=== PATIENT | female | born 1940 | race Caucasian/White ===

== ENCOUNTER 2025-08-01 21:37 | Inpatient (IN) | payer MEDICARE, SELFPAY ==
--- NOTE | 2025-08-01 21:44 | PC.NURSE ---
Patient arrived to floor via stretcher with EMS from [facility] at 21:43.
[2025-08-01 21:55] VITALS: BMI 27.8
[2025-08-01 22:00] VITALS: BMI 25.8
[2025-08-01 22:31] VITALS: BP 187/86; PULSE 94; RESP 16; TEMP 36.8; O2SAT 98
[2025-08-01] MEDS: HYDROCODONE/APAP 5/325 MG TABLET 1 TAB PO (22:51)
--- NOTE | 2025-08-01 23:24 | P.HP_ITS ---
<Statement entered by Orlando Villanueva MD - 08/02/25 14:15> Agree with the plan of care as outlined by the STE[employer]EDER. History of Present Illness *Admission Date: 08/01/25 *Reason for visit:: Atrial thrombus *History of present illness: This is an 84-year-old female who has a past medical history significant for restless leg syndrome, CVA, renal cell cancer, dementia, iron deficiency/chronic kidney disease anemia, stage IV chronic kidney disease, anxiety, and depression who presents from outside facility due to right atrial thrombus. Due to patient's symptoms, she presented to their facility for evaluation. While at prior facility, 2D echo revealed an extensive thrombus in the right atrium, patient's chest x-ray was consistent with pulmonary edema, and her BNP was greater than 5000. As a result, patient's case was discussed with on-call public health service officer who recommended transfer to [facility] for thrombectomy. As a result, patient has been admitted for further management. During my evaluation of the patient, patient was alert and pleasantly confused. Family member reports that patient has had a 2-week history of shortness of air with minimal exertion. They endorse that patient has been having some shortness of air while laying flat. Patient does have a history of renal cell carcinoma but family does not want any aggressive treatment. Patient is currently denying any chest pain, lightheadedness, dizziness, fever, chills, rigors, nausea, vomiting, diarrhea. Additional pertinent labs obtained at prior facility revealed a BNP of greater than 5000, alkaline phosphate 150, hemoglobin 8.2, hematocrit of 27, troponin of 58, neutrophils 80%, blood glucose 146, BUN of 37, creatinine of 2.21, and GFR 21. [facility] Disclaimer: The information contained in this section may have been updated after the patient was seen, as this information can be updated by other users. Social History Smoking Status: Never smoker alcohol intake: never current occupational status: retired Travel in the last 8 weeks?: None Other Medical History Have you received the Flu Vaccine for this season: Yes Have you received the Pneumonia Vaccine: Yes Review of Systems Review of Systems Review of systems:: pertinent systems reviewed and negative unless documented below Constitutional Constitutional: Reports system reviewed and no additional complaints, except as documented Eyes Eyes: Reports system reviewed and no additional complaints, except as documented ENT Ears, Nose, Mouth, and Throat: Reports system reviewed and no additional complaints, except as documented *Cardiovascular Cardiovascular: Reports dyspnea and Reports dyspnea on exertion *Respiratory Respiratory: Reports dyspnea and Reports dyspnea on exertion *Gastrointestinal Gastrointestinal: Reports system reviewed and no additional complaints, except as documented *Genitourinary Genitourinary: Reports system reviewed and no additional complaints, except as documented *Musculoskeletal Musculoskeletal: Reports system reviewed and no additional complaints, except as documented Integumentary/Breasts Skin/Breast: Reports system reviewed and no additional complaints, except as documented *Neurologic Neurologic: Reports system reviewed and no additional complaints, except as documented Psychiatric Psychiatric: Reports system reviewed and no additional complaints, except as documented Endocrine Endocrine: Reports system reviewed and no additional complaints, except as documented Hematologic/Lymphatic Hematologic/Lymphatic: Reports system reviewed and no additional complaints, except as documented Allergic/Immunologic Allergic/Immunologic: Reports system reviewed and no additional complaints, except as documented Meds Home Medications and Allergies Home Medications ?Medication ?Instructions ?Recorded ?Confirmed ?Type alprazolam 0.5 mg tablet 0.5 mg PO TID PRN Anxity 04/1808/01/25 History aspirin 81 mg capsule 81 mg PO DAILY 08/01/2504/18 History donepezil 5 mg tablet 5 mg PO DAILY 08/01/2508/01 History ferrous gluconate 324 mg (38 mg 324 mg PO DAILY History iron) tablet gabapentin 100 mg capsule 100 mg PO HS 08/01/25 History mecobalamin (vitamin B12) 1,000 1,000 mcg PO DAILY 04/1808/01/25 History mcg chewable tablet (B12 Active) New Prescriptions to Start Prescriptions: Allergies Allergy/AdvReac Type Severity Reaction Status Date / Time No Known Allergies Allergy Verified 08/01/25 23:07 Exam Data for Last 24 hours Vital signs and Labs for Last 24 Hours: Temp Pulse Resp BP Pulse Ox O2 Del Method O2 Flow Rate 98.3 F 94 H 16 187/86 H 98 Nasal Cannula 2 08/01/25 22:31 08/01/25 22:31 08/01/25 22:31 08/01/25 22:31 08/01/25 22:31 08/01/25 23:00 08/01/25 23:00 I & O for Last 24 hours: Intake & Output 07/29/25 07/30/25 07/31/25 08/01/25 23:59 23:59 23:59 23:59 Weight 68.577 kg Constitutional Constitutional: no acute distress and cooperative *Routine HEENT Exam Head: Present normocephalic and atraumatic Eye: Present EOMI and PERRL ENT: Present mucous membranes moist *Routine Neck Exam Neck: Present supple, full ROM and trachea midline *Routine Respiratory Exam Respiratory: Present crackles, normal respiratory effort, able to speak in complete sentences and symmetric chest movement *Routine Cardiovascular Exam Cardiovascular: Present RRR, Normal S1 and Normal S2 *Routine Abdominal Exam Abdominal: Present soft and normoactive bowel sounds *Routine Rectal Exam Rectal:: deferred *Routine Genitalia Exam Genitalia:: deferred *Routine Extremities Exam Extremities: Present edema, full ROM, pulses intact and normal capillary refill Routine Back/Spine/Pelvis Exam Back/Spine: Present full ROM *Routine Skin Exam Skin: Present intact, dry and warm *Routine Neurological Exam Neurological: Present alert, oriented X3, CN II-XII intact and moving all extremities Routine Psychiatric Exam Psychiatric: Present normal affect, normal thought process and anxious H&P: Result Impressions 84-year-old female presents with right atrial thrombosis likely due to hypercoagulability from known renal carcinoma Assessment and Plan *Assessment and plan (1) Atrial thrombus: Status: Acute Category: Medical Code(s): I51.3 - Intracardiac thrombosis, not elsewhere classified (2) Pulmonary edema: Status: Acute Qualifiers: Chronicity: acute Qualified Code(s): J81.0 - Acute pulmonary edema Category: Medical Code(s): J81.1 - Chronic pulmonary edema (3) Elevated brain natriuretic peptide (BNP) level: Status: Acute Category: Medical Code(s): R79.89 - Other specified abnormal findings of blood chemistry (4) Acute hypoxic respiratory failure: Status: Acute Category: Medical Code(s): J96.01 - Acute respiratory failure with hypoxia (5) Anemia: Status: Acute Qualifiers: Anemia type: unspecified type Qualified Code(s): D64.9 - Anemia, unspecified Category: Medical Code(s): D64.9 - Anemia, unspecified (6) Chronic kidney disease: Status: Acute Qualifiers: Chronic kidney disease stage: unspecified stage Qualified Code(s): N18.9 - Chronic kidney disease, unspecified Category: Medical Code(s): N18.9 - Chronic kidney disease, unspecified (7) Elevated troponin: Status: Acute Category: Medical Code(s): R79.89 - Other specified abnormal findings of blood chemistry (8) Renal cancer: Status: Acute Qualifiers: Laterality: unspecified laterality Qualified Code(s): C64.9 - Malignant neoplasm of unspecified kidney, except renal pelvis Category: Medical Code(s): C64.9 - Malignant neoplasm of unspecified kidney, except renal pelvis Plan Assessment: Atrial thrombus Elevated troponin Acute hypoxic respiratory failure: Patient has new demand for supplemental oxygen at 2 L Elevated BNP Pulmonary edema - I had an extensive discussion with on-call cardiology concerning this patient. I will heparinize patient one 1 mg/kg of body weight of Lovenox twice daily- cardiology wants a minimum of 2 doses administered prior to ENT intervention - Will obtain 2D echo results from prior facility - Continue to trend patient's troponin - Provide supplemental oxygen to maintain oxygen saturation greater than 94% - 40 mg Lasix IV daily - Bilateral lower extremity venous Doppler Chronic kidney disease - Baseline creatinine is unknown Renal cell carcinoma - Patient does not want any aggressive workup or treatment Anemia - Multifactorial in the setting of iron deficiency and chronic kidney disease Plan: Admit patient to the MedSurg unit on telemetry Activity as tolerated Electrolyte replacement Saline lock Vital signs every 4 hours Cardiac diet now and then n.p.o. after midnight CBC/BMP daily Lipid panel, magnesium 5 mg [place] p.o. every 4 hours PMR pain 4 mg Zofran IV push to 8 hours for nausea Full code I have discussed this case with attending physician Dr. Villanueva and I look forward to more input
[2025-08-01] MEDS: OLANZapine 5 MG ODT TABLET SL (23:29)
[2025-08-02] VITALS (12 sets, daily range): BP systolic 115–175; BP diastolic 44–94; PULSE 75–106; RESP 12–18; TEMP 36.1–37.2; O2SAT 86–99; BMI 25.6
[2025-08-02] MEDS: HYDRALAZINE HCL 25MG TABLET 50 MG PO (00:25)
[2025-08-02] MEDS: GABAPENTIN 100MG CAPSULE 100 MG PO ×2 (00:25→20:07)
[2025-08-02 00:46] LABS: Troponin I 0.08 ng/ml (0.00-0.034)
--- NOTE | 2025-08-02 01:20 | ECG_ITS ---
APPROVED REPORT Exam: Resting ECG HR:95 bpm ECG Measurements Heart Rate 95 AXES AK 164 P 67 QRSd 78 QRS 31 QT 385 T 140 QTc 438 Conclusion SINUS RHYTHM LEFT VENTRICULAR HYPERTROPHY AND ST-T CHANGE [VOLTAGE CRITERIA PLUS ST/T ABNORMALITY] ABNORMAL ECG UNCONFIRMED REPORT Electronically signed by : Coery Cool MD 08/03/2025 08:12:51
[2025-08-02 07:32] LABS: Hematocrit 25.2 % (37.0-47.0); Hemoglobin 7.6 g/dL (12.2-16.2); Immature Granulocytes % 0.4 %; Mean Corpuscular HGB Conc 30.2 g/dL (31.8-35.4); Mean Corpuscular Hemoglobin 25.7 pg (27.0-31.2); Mean Corpuscular Volume 85.1 fl (81-99); Nucleated Red Blood Cells % 0 %; Platelet Count 383 K/mm3 (142-424); Red Blood Count 2.96 M/mm3 (4.20-5.40); Red Cell Distribution Width-SD 53.0 fL; White Blood Count 7.5 K/mm3 (4.8-10.8)
[2025-08-02 07:41] LABS: Alanine Aminotransferase 12 U/L (12-78); Albumin Level 3.2 g/dl (3.5-5.0); Albumin/Globulin Ratio 0.8 (1.1-1.8); Alkaline Phosphatase 143 U/L (38-126); Anion Gap 10.8 mEq/L (5-15); Aspartate Amino Transferase 18 U/L (14-36); Bilirubin,Total 0.5 mg/dl (0.2-1.3); Blood Urea Nitrogen 35 mg/dl (7-17); Calcium 8.3 mg/dl (8.4-10.2); Carbon Dioxide 25 mmol/L (22.0-30.0); Chloride 106 mmol/L (98-107); Cholesterol 125 mg/dl (140-200); Creatinine Clearance Estimated 19 mL/min (50-200); Creatinine,Serum 2.40 mg/dl (0.52-1.04); Estimated Glomerular Filt Rate 19 ml/min (>60); GFR (African American) 23 ML/MIN (>60); Globulin 4.2 g/dL (1.3-3.2); Glucose 102 mg/dl (74-100); HDL Cholesterol 35 mg/dl (40-60); Magnesium 1.7 mg/dl (1.6-2.3); Potassium 3.8 mmoL/L (3.5-5.1); Sodium 138 mmol/L (136-145); Total Protein,Serum 7.4 g/dl (6.3-8.2); Triglycerides 72 mg/dl (30-150)
[2025-08-02] MEDS: IPRATROPIUM/ALBUTEROL 3 ML NEB IH ×4 (08:46→23:04)
[2025-08-02] MEDS: ASPIRIN EC 81MG TABLET 81 MG PO (08:52)
[2025-08-02] MEDS: FUROSEMIDE 40MG/4ML VIAL 40 MG IV ×2 (08:53→16:39)
--- NOTE | 2025-08-02 09:00 | CA_ITS ---
FINAL REPORT CLINICAL HISTORY: PT HAS RENAL CELL CA WITH IVC AND RIGHT ATRIAL THROMBUS,R/O LE DVT'S,PT HAD EDEMA IN LE'S FINDINGS: Multiple transverse and longitudinal scans were performed of the femoral popliteal deep venous system, with augmentation and compression maneuvers. Normal phasic flow was noted in the visualized deep venous system. No intraluminal increased echogenicity is noted to suggest thrombus. There is normal compression and augmentation of the venous structures. No abnormal venous collaterals are seen. IMPRESSION: No evidence of deep venous thrombosis of the bilateral lower extremities. Reviewed, Interpreted and Dictated by Klever Pena MD Transcribed by Coral Carlos Authenticated and . [facility]
--- NOTE | 2025-08-02 09:38 | HMH.PHAINT1 ---
Pharmacy Intervention Comments: MEDICATION RECONCILIATION COMPLETED ON PATIENT USING EXTERNAL FILL HISTORY FROM PHARMACY AND SHARRI REPORT. -MATTHIAS FRAZIER, VELASQUEZD
[2025-08-02 09:46] LABS: Troponin I 0.08 ng/ml (0.00-0.034)
[2025-08-02 11:13] LABS: NT Pro Brain Natriuretic Pep. 100000 pg/mL (0-450)
--- NOTE | 2025-08-02 16:33 | EXP.PN ---
Subjective *Date: 08/03/25 *Time: 15:07 Interval history: Patient very pleasant, no acute complaints today. Denies chest pain, shortness of breath. Exam Data for Last 24 hours Vital signs and Labs for Last 24 Hours: Temp Pulse Resp BP Pulse Ox O2 Del Method O2 Flow Rate 98.1 F 97 H 18 158/69 H 97 Nasal Cannula 2 08/02/25 12:00 08/02/25 12:00 08/02/25 12:00 08/02/25 12:00 08/02/25 12:00 08/02/25 15:00 08/02/25 15:00 Laboratory Results - last 24 hr 08/02/25 00:08: Troponin I 0.08 H 08/02/25 06:41: WBC 7.5, RBC 2.96 L, Hgb 7.6 L, Hct 25.2 L, MCV 85.1, MCH 25.7 L, MCHC 30.2 L, RDW 17.1, Plt Count 383, MPV 9.3, Neut % (Auto) 74.8, Lymph % (Auto) 15.9, [place] % (Auto) 7.9, Eos % (Auto) 0.7, Baso % (Auto) 0.3, Neut # (Auto) 5.6, Lymph # (Auto) 1.2, [place] # (Auto) 0.6, Eos # (Auto) 0.1, Baso # (Auto) 0.0, Sodium 138, Potassium 3.8, Chloride 106, Carbon Dioxide 25, Anion Gap 10.8, BUN 35 H, Creatinine 2.40 H, Estimated Creat Clear 19, Estimated GFR 19 L*, Est GFR ( Amer) 23 L, Glucose 102 H, Calcium 8.3 L, Magnesium 1.7, Total Bilirubin 0.5, AST 18, ALT 12, Alkaline Phosphatase 143 H, Troponin I 0.08 H, NT-Pro-B Natriuret Pep 154443 H, Total Protein 7.4, Albumin 3.2 L, Globulin 4.2 H, Albumin/Globulin Ratio 0.8 L, Triglycerides 72, Cholesterol 125 L, LDL Cholesterol Direct 74.78 L, VLDL Cholesterol 14, HDL Cholesterol 35 L, Cholesterol/HDL Ratio 3.6 H I & O for Last 24 hours: Intake & Output 07/30/25 07/31/25 08/01/2525 23:59 23:59 23:59 23:59 Intake Total 800 / 800 Output Total 300 / 300 Balance - 500 / 500 Weight 68.577 kg 68.124 kg Constitutional Constitutional: no acute distress *Routine HEENT Exam Head: Present normocephalic Eye: Present EOMI and PERRL ENT: Present mucous membranes moist *Routine Neck Exam Neck: Present supple; Absent lymphadenopathy *Routine Respiratory Exam Respiratory: Present CTA bilaterally *Routine Cardiovascular Exam Cardiovascular: Present RRR *Routine Abdominal Exam Abdominal: Present soft and normoactive bowel sounds; Absent tenderness *Routine Extremities Exam Extremities: Absent cyanosis, clubbing or edema *Routine Skin Exam Skin: Present warm; Absent rash *Routine Neurological Exam Neurological: Present alert and oriented X3 Assessment and Plan *Assessment and plan (1) Renal cancer: Status: Acute Qualifiers: Laterality: unspecified laterality Qualified Code(s): C64.9 - Malignant neoplasm of unspecified kidney, except renal pelvis Category: Medical Code(s): C64.9 - Malignant neoplasm of unspecified kidney, except renal pelvis (2) Atrial thrombus: Status: Acute Category: Medical Code(s): I51.3 - Intracardiac thrombosis, not elsewhere classified Plan Anthony Sims is a 84-year-old pleasant female who presented as a transfer from [facility] for large left atrial thrombus in the setting of renal cell carcinoma, new onset acute heart failure, NSTEMI. #Shortness of breath #Large left atrial thrombus ? Presented to [facility] with shortness of breath, found to have large left atrial thrombus on ECHO. Dr. Steiner recommended transfer to our facility for further evaluation and possible embolectomy/angiogram. ? Patient does have history of renal cell carcinoma, does not want to pursue treatment. Unfortunately does put her at a higher risk for thrombosis. ? LDL 78, follow-up A1c and lipid panel. ? Continue therapeutic Lovenox. ? Follow-up venous Doppler lower extremities. ? Cardiology planning for GLORY on Monday. N.p.o. at midnight. ? Cardiology consulted, pending further recommendations on Monday. ? Continuous cardiac telemetry. #New onset heart failure, unknown type #NSTEMI, likely type II ? Presented to [facility] with shortness of breath, found to have pulmonary edema with BNP in 5000's. proBNP 100,000 here in the setting of left atrial thrombus. ? Continue IV Lasix 40 mg twice daily, consider starting spironolactone 25 mg. Patient diuresing well. ? Troponin plateaued at 0.08, likely demand ischemia in the setting of HFpEF and possible PE. ? Follow-up GLORY in the morning. ? Pending further cardiology recommendations. #Renal cell carcinoma ? Conservative management, patient does not want to pursue treatment. #Dementia ? Continue home donepezil. #Peripheral neuropathy ? Continue home gabapentin. #Anxiety ? Continue home Xanax 0.5 mg 3 times daily as needed. Full code DVT prophylaxis: Therapeutic Lovenox Home medications: Restarted.
--- NOTE | 2025-08-02 18:07 | PC.NURSE ---
Pt has been alert to self and year this shift, pleasantly confused. Vital signs stable tolerating RA-2L NC for comfort. IV diuretics given per MAR with adequate urinary output. Pt has sat up in the chair this shift. Pt resting comfortably sitting up in the chair with no further needs voiced at this time. Chair alarm in place. Call light within reach.
[2025-08-02] MEDS: OLANZapine 5 MG ODT TABLET 10 MG SL (20:07)
[2025-08-03] VITALS (10 sets, daily range): BP systolic 122–169; BP diastolic 70–87; PULSE 80–406; RESP 12–20; TEMP 36.5–37.2; O2SAT 91–100; BMI 24.9
--- NOTE | 2025-08-03 04:41 | PC.NURSE ---
Pt has remained alert to self only. She was placed on 2L for comfort. She Did complain of some SOA once but after sitting up felt better. Duonebs Q6. Purewick in place. Family has remained at bedside. No complaints at this time, call light within reach.
[2025-08-03] MEDS: IPRATROPIUM/ALBUTEROL 3 ML NEB IH ×4 (06:37→23:47)
[2025-08-03 08:10] LABS: Hematocrit 25.4 % (37.0-47.0); Hemoglobin 7.5 g/dL (12.2-16.2); Immature Granulocytes % 0.5 %; Mean Corpuscular HGB Conc 29.5 g/dL (31.8-35.4); Mean Corpuscular Hemoglobin 25.4 pg (27.0-31.2); Mean Corpuscular Volume 86.1 fl (81-99); Nucleated Red Blood Cells % 0 %; Platelet Count 358 K/mm3 (142-424); Red Blood Count 2.95 M/mm3 (4.20-5.40); Red Cell Distribution Width-SD 53.9 fL; White Blood Count 6.4 K/mm3 (4.8-10.8)
[2025-08-03] MEDS: ASPIRIN EC 81MG TABLET 81 MG PO (08:26)
[2025-08-03] MEDS: FUROSEMIDE 40MG/4ML VIAL 40 MG IV (08:29)
[2025-08-03 08:33] LABS: Alanine Aminotransferase 11 U/L (12-78); Albumin Level 3.0 g/dl (3.5-5.0); Albumin/Globulin Ratio 0.7 (1.1-1.8); Alkaline Phosphatase 128 U/L (38-126); Anion Gap 11.8 mEq/L (5-15); Aspartate Amino Transferase 16 U/L (14-36); Bilirubin,Total 0.4 mg/dl (0.2-1.3); Blood Urea Nitrogen 44 mg/dl (7-17); Calcium 7.9 mg/dl (8.4-10.2); Carbon Dioxide 25 mmol/L (22.0-30.0); Chloride 104 mmol/L (98-107); Creatinine Clearance Estimated 16 mL/min (50-200); Creatinine,Serum 2.80 mg/dl (0.52-1.04); Estimated Glomerular Filt Rate 16 ml/min (>60); GFR (African American) 19 ML/MIN (>60); Globulin 4.1 g/dL (1.3-3.2); Glucose 98 mg/dl (74-100); Potassium 3.8 mmoL/L (3.5-5.1); Sodium 137 mmol/L (136-145); Total Protein,Serum 7.1 g/dl (6.3-8.2)
--- NOTE | 2025-08-03 15:15 | EXP.PN ---
Subjective *Date: 08/03/25 *Time: 15:15 Interval history: Patient continues to be very pleasant, no chest pain or trouble breathing. Lower extremity edema improving. N.p.o. at midnight for possible GLORY in the morning. Obdulia discussed plan with family around 10 AM tomorrow Exam Data for Last 24 hours Vital signs and Labs for Last 24 Hours: Temp Pulse Resp BP Pulse Ox O2 Del Method O2 Flow Rate 98.1 F 101 H 18 140/70 98 Nasal Cannula 2 08/03/25 12:00 08/03/25 12:00 08/03/25 12:00 08/03/25 12:00 08/03/25 12:00 08/03/25 13:00 08/03/25 13:00 Laboratory Results - last 24 hr 08/03/25 07:03: WBC 6.4, RBC 2.95 L, Hgb 7.5 L, Hct 25.4 L, MCV 86.1, MCH 25.4 L, MCHC 29.5 L, RDW 17.1, Plt Count 358, MPV 9.7, Neut % (Auto) 67.7, Lymph % (Auto) 20.8, [place] % (Auto) 9.6 H, Eos % (Auto) 1.1, Baso % (Auto) 0.3, Neut # (Auto) 4.3, Lymph # (Auto) 1.3, [place] # (Auto) 0.6, Eos # (Auto) 0.1, Baso # (Auto) 0.0, Sodium 137, Potassium 3.8, Chloride 104, Carbon Dioxide 25, Anion Gap 11.8, BUN 44 H D, Creatinine 2.80 H, Estimated Creat Clear 16, Estimated GFR 16 L*, Est GFR ( Amer) 19 L*, Glucose 98, Calcium 7.9 L, Total Bilirubin 0.4, AST 16, ALT 11 L, Alkaline Phosphatase 128 H, Total Protein 7.1, Albumin 3.0 L, Globulin 4.1 H, Albumin/Globulin Ratio 0.7 L I & O for Last 24 hours: Intake & Output 07/31/25 08/01/25 08/02/25 08/03/25 23:59 23:59 23:59 23:59 Intake Total 1160 / 1410 1090 / 1090 Output Total 550 / 550 970 / 970 Balance -25 / 275 610 / 860 120 / 120 Weight 68.577 kg 68.124 kg 66.224 kg Constitutional Constitutional: no acute distress *Routine HEENT Exam Head: Present normocephalic Eye: Present EOMI and PERRL ENT: Present mucous membranes moist *Routine Neck Exam Neck: Present supple; Absent lymphadenopathy *Routine Respiratory Exam Respiratory: Present CTA bilaterally *Routine Cardiovascular Exam Cardiovascular: Present RRR *Routine Abdominal Exam Abdominal: Present soft and normoactive bowel sounds; Absent tenderness *Routine Extremities Exam Extremities: Absent cyanosis, clubbing or edema *Routine Skin Exam Skin: Present warm; Absent rash *Routine Neurological Exam Neurological: Present alert and oriented X3 Assessment and Plan *Assessment and plan (1) Renal cancer: Status: Acute Qualifiers: Laterality: unspecified laterality Qualified Code(s): C64.9 - Malignant neoplasm of unspecified kidney, except renal pelvis Category: Medical Code(s): C64.9 - Malignant neoplasm of unspecified kidney, except renal pelvis (2) Atrial thrombus: Status: Acute Category: Medical Code(s): I51.3 - Intracardiac thrombosis, not elsewhere classified Plan Anthony Sims is a 84-year-old pleasant female who presented as a transfer from [facility] for large left atrial thrombus in the setting of renal cell carcinoma, new onset acute heart failure, NSTEMI. #Shortness of breath #Large left atrial thrombus ? Presented to [facility] with shortness of breath, found to have large left atrial thrombus on ECHO. Dr. Steiner recommended transfer to our facility for further evaluation and possible embolectomy/angiogram. ? Patient does have history of renal cell carcinoma, does not want to pursue treatment. Unfortunately does put her at a higher risk for thrombosis. ? LDL 78, follow-up A1c and lipid panel. ? Continue therapeutic Lovenox. ? Follow-up venous Doppler lower extremities. ? Cardiology planning for GLORY on Monday. N.p.o. at midnight. ? Cardiology consulted, pending further recommendations on Monday. Discussed with Dr. Steiner, we will plan to discuss plan with family at 10 AM. ? Continuous cardiac telemetry. #New onset heart failure, unknown type #NSTEMI, likely type II ? Presented to [facility] with shortness of breath, found to have pulmonary edema with BNP in 5000's. proBNP 100,000 here in the setting of left atrial thrombus. ? Continue IV Lasix 40 mg twice daily, consider starting spironolactone 25 mg. Patient diuresing well. ? Troponin plateaued at 0.08, likely demand ischemia in the setting of HFpEF and possible PE. ? Follow-up GLORY in the morning. ? Pending further cardiology recommendations. #Renal cell carcinoma ? Conservative management, patient does not want to pursue treatment. #Dementia ? Continue home donepezil. #Peripheral neuropathy ? Continue home gabapentin. #Anxiety ? Continue home Xanax 0.5 mg 3 times daily as needed. Full code DVT prophylaxis: Therapeutic Lovenox Home medications: Restarted.
[2025-08-03] MEDS: LACTATED RINGERS 1000ML 250 ML 125 ML IV (15:41)
--- NOTE | 2025-08-03 17:00 | PC.NURSE ---
Pt has been alert to self this shift, pleasantly confused. Vital signs stable tolerating 2L NC for comfort. Fluid bolus given per NOV. Pt NPO at midnight for cardiology consult and possible procedure. Pt complains of feeling anxious. PRN xanax given per NOV. Pt has refused wanting to sit up in the chair this shift. Pt resting comfortably supine in bed with no further needs voiced at this time. Call light within reach. Bed alarm in place. Family at bedside.
[2025-08-03] MEDS: GABAPENTIN 100MG CAPSULE 100 MG PO (20:42)
[2025-08-03] MEDS: OLANZapine 5 MG ODT TABLET 10 MG SL (20:42)
[2025-08-03] MEDS: HYDROCODONE/APAP 5/325 MG TABLET 1 TAB PO (22:15)
[2025-08-04] VITALS (41 sets, daily range): BP systolic 112–208; BP diastolic 66–131; PULSE 62–115; RESP 12–20; TEMP 36.4–37.7; O2SAT 85–100; BMI 25.8
[2025-08-04] MEDS: ACETAMINOPHEN 325MG TAB 650 MG PO (00:25)
--- NOTE | 2025-08-04 06:26 | PC.NURSE ---
Pt has remained alert to self and has tolerated 2L nasal cannula. She has complained on restless legs and was medicated per MAR. She has remained NPO since midnight. Family member has remained at bedside. No complaints at this time, call light within reach.
[2025-08-04] MEDS: IPRATROPIUM/ALBUTEROL 3 ML NEB IH ×3 (06:43→23:39)
[2025-08-04 06:52] LABS: Immature Granulocytes % 0.6 %; Mean Corpuscular HGB Conc 29.5 g/dL (31.8-35.4); Mean Corpuscular Hemoglobin 25.5 pg (27.0-31.2); Mean Corpuscular Volume 86.4 fl (81-99); Nucleated Red Blood Cells % 0 %; Platelet Count 293 K/mm3 (142-424); Red Blood Count 2.43 M/mm3 (4.20-5.40); Red Cell Distribution Width-SD 53.1 fL; White Blood Count 6.5 K/mm3 (4.8-10.8)
[2025-08-04 07:00] LABS: Alanine Aminotransferase 9 U/L (12-78); Albumin Level 2.7 g/dl (3.5-5.0); Albumin/Globulin Ratio 0.7 (1.1-1.8); Alkaline Phosphatase 112 U/L (38-126); Anion Gap 9.8 mEq/L (5-15); Aspartate Amino Transferase 14 U/L (14-36); Bilirubin,Total 0.3 mg/dl (0.2-1.3); Blood Urea Nitrogen 51 mg/dl (7-17); Calcium 7.8 mg/dl (8.4-10.2); Carbon Dioxide 26 mmol/L (22.0-30.0); Chloride 106 mmol/L (98-107); Creatinine Clearance Estimated 16 mL/min (50-200); Creatinine,Serum 2.90 mg/dl (0.52-1.04); Estimated Glomerular Filt Rate 15 ml/min (>60); GFR (African American) 19 ML/MIN (>60); Globulin 3.8 g/dL (1.3-3.2); Glucose 109 mg/dl (74-100); Potassium 3.8 mmoL/L (3.5-5.1); Sodium 138 mmol/L (136-145); Total Protein,Serum 6.5 g/dl (6.3-8.2)
[2025-08-04 07:04] LABS: Hematocrit 21.0 % (37.0-47.0); Hemoglobin 6.2 g/dL (12.2-16.2)
--- NOTE | 2025-08-04 07:10 | PC.NURSE ---
Lab called to report a critical HGB of 6.2. Hospitalist notified. No new orders given at this time.
[2025-08-04 08:13] LABS: Thyroid Stimulating Hormone 0.57 uIU/mL (0.465-4.68)
[2025-08-04 08:55] LABS: Reticulocyte % (Auto) 2.5 % (0.9-3.2)
--- NOTE | 2025-08-04 10:31 | IR_ITS ---
APPROVED REPORT Patient Location: Inpatient Pedal Assembler: MARTHA Rosas RT (R) PROCEDURES Computer assisted vacuum Thrombectomy of the superior vena cava, inferior vena cava, Right atrium, bilateral renal veins, and hepatic vein Right heart catheterization Pressure measurement in the right atrium Transesophageal echocardiogram Echocardiogram Informed consent was obtained prior to the procedure. COMPLICATIONS NONE Estimated Blood Loss: 400 mls TECHNIQUE One percent lidocaine was used to anesthetize the right anterior aspect of the neck. A chiller hand needle was used to identify the right internal jugular vein. Following this a larger cannulation needle was used to cannulate the right internal jugular vein and a wire was passed into the vein. Prior to the 7 [place] sheath being inserted the wire was confirmed under fluoroscopic guidance to be in the inferior vena cava. An 11 [place] sheath was used to dilate before inserting 17 [place] sheath. GLORY probe was advanced to locate thrombus as well as simultaneous echocardiogram images taken. The 16 [place] Lightning flash catheter was advanced over the wire to the IVC under fluoroscopy, aspiration thrombectomy was performed after removing the wire. Copious clot and tumor was evacuated completely clearing the right atrium as well as the proximal portion of the inferior vena cava. There was residual tumor/thrombus in the hepatic vein at the end of the procedure transesophageal echocardiogram as well as transthoracic echocardiography was used for guidance repeated multiple times to further aspirate thrombus/tumor from the Right atrium, renal veins, hepatic vein, IVC and SVC. No angiograms were done due to patient's elevated creatinine level. The lightning catheter and GLORY probe was removed. At the end of the procedure the patient was transferred to the postop holding area in stable condition for sheath removal. ANGIOGRAPHIC RESULTS Right atrium had extensive thrombus/tumor Inferior vena cava had extensive thrombus/tumor which extended into the hepatic vein and the bilateral renal veins Right atrial pressure 10 mmHg before and after procedure IMPRESSION Successful Computer assisted vacuum Thrombectomy superior vena cava, inferior vena cava, Right atrium, bilateral renal veins, hepatic vein Successful Transesophageal echocardiogram Successful Echocardiogram Successful right heart catheterization PLAN 1. Supportive care 2. Further discussion regarding patient's poor prognosis should be undertaken with consideration for palliative care versus aggressive chemotherapy 3. Recommend heme-onc consult Electronically signed by : Mikhail Steiner MD 08/06/2025 10:39:25
--- NOTE | 2025-08-04 11:37 | CA_ITS ---
APPROVED REPORT EXAM: Comprehensive 2D, Doppler, and color-flow Echocardiogram Lead Installer: Sheila Palm DIANA Ht: 5 ft 4 in Wt: 151lbs BSA: 1.74 BP: 125/78 mmHg Indications: RIGHT ATRIAL THROMBUS SEEN ON TTE Procedure Transesophageal probe was inserted and advanced into esophagus without difficulty by Dr. Cresencio Palencia. The GLORY was performed without complications. Throughout the procedure, the blood pressure, pulse oximetry, cardiac rhythm, and rate were monitored. The patient tolerated the procedure without adverse effects. Recovery from conscious sedation was uneventful and vital signs were stable. Other Information Study Quality: Fair Conclusion This is a limited GLORY to evaluate for the presence and location of RA and IVC thrombus intraprocedurally for guidance of thrombectomy device. Limited windows are obtained. At the beginning of the procedure, there is a large, filamentous thrombus extending from the IVC into the RA lumen. The tricuspid valve and RV appear normal in structure with no evidence of valvular or RV thrombus. No significant TR. Intraprocedurally, the thrombectomy device was advanced into the RA thrombus. Thrombectomy was successfully performed without complications. Further evaluation of the IVC demonstrates persistent presence of IVC thrombus (extending intra-abdominally into the hepatic vein and renal vein). Additional thrombectomy attempts did not significantly resolve the IVC thrombus. Electronically signed by : Layla Palencia MD 08/08/2025 17:49:30
--- NOTE | 2025-08-04 11:41 | HMH.PTEV ---
Physical Therapy Evaluation Rehab PT IP Evaluation Start: 08/04/25 10:16 Freq: ONCE Status: Active Protocol: Document 08/04/25 11:31 ERIC (Rec: 08/04/25 11:38 ERIC [id number]) Subjective/History History History Per H&P: This is an 84-year-old female who has a past medical history significant for restless leg syndrome, CVA, renal cell cancer, dementia, iron deficiency/chronic kidney disease anemia, stage IV chronic kidney disease, anxiety, and depression who presents from outside facility due to right atrial thrombus. Due to patient's symptoms, she presented to their facility for evaluation. While at prior facility , 2D echo revealed an extensive thrombus in the right atrium, patient's chest x-ray was consistent with pulmonary edema, and her BNP was greater than 5000. As a result, patient's case was discussed with on-call lead retail sales associate who recommended transfer to [facility] for thrombectomy. As a result, patient has been admitted for further management. During my evaluation of the patient, patient was alert and pleasantly confused. Family member reports that patient has had a 2-week history of shortness of air with minimal exertion. They endorse that patient has been having some shortness of air while laying flat. Patient does have a history of renal cell carcinoma but family does not want any aggressive treatment. Patient is currently denying any chest pain, lightheadedness, dizziness, fever, chills, rigors, nausea, vomiting, diarrhea. Additional pertinent labs obtained at prior facility revealed a BNP of greater than 5000, alkaline phosphate 150, hemoglobin 8.2, hematocrit of 27, troponin of 58, neutrophils 80%, blood glucose 146, BUN of 37, creatinine of 2.21, and GFR 21. Subjective Subjective Pt and assisted in providing hx for pt. Pt lives with her in a 2 story home with 0 RODOLFO (pt doesn't go upstairs). Pt with hx of 5 falls in past month. Pt owns a RW and cane but does not use it. Pt reports being IND with ambulation. Pt's able to provide 24/7 supervision but is limited in amount of physical assistance he can provide. Pt has neighbors who can assist with mobility as needed. Pt reports she still drives. [facility] How much help from another person do you currently need... Turning from your A little back to your side while in a flat bed without using bedrails? Moving from lying on A little back to sitting on the side of a flat bed without using bedrails? Moving to and from a A little bed to a chair ( including a wheelchair)? Standing up from a A little chair using your arms? (e.g., wheelchair, bedside chair) Walking in hospital A little room? Climbing 3-5 steps A lot with a railing? Mobility Score 17 Mobility Level [facility] 5 Stand (1 or more minutes) Mobility Calculator Rehab PT IP Eval Objective Appearance Patient Behavior Appropriate,Cooperative Difficulty following none instructions Speech Pattern Clear Ambulation Patient Able to Yes Ambulate Ambulation Observation IP General Gait Wide Based Gait Pattern Observation Ambulation Distance 15 (feet) Ambulation Assistive Rolling Walker Device Ambulation Ability Contact Guard/Hand Hold,Minimal x 1 (25% assist) Balance Ability to Arise Able, uses arms to help Sitting Balance Steady, safe Standing Balance Steady, wide stance Dynamic Sitting Good Balance Ability Dynamic Standing Fair Balance Ability Transfers Bed Transfer Ability Moderate x 1 (50% assist) Sit to Stand Bed Contact Guard/Hand Hold Transfer Ability Rehab PT IP prob,goals,plan Problems Date of Evaluation: 08/04/25 PT IP Problems Bed Mobility,Transfers,Gait,Balance,Self care,Safety Rehab Potential Rehab Potential Good Plan PT Intervention Plan Bed Mobility,Transfers,Gait,Balance,Self care,Safety, Therapeutic Exercise Other Intervention 1-2 times Plan PT Plan Frequency Daily Duration LOS Discharge Goals Bed Transfer Ability Supervision/Stand by Sit to Stand Chair Supervision/Stand by Transfer Ability Ambulation Assistive Rolling Walker Device Ambulation Distance 40 (feet) Discharge Plan PT Discharge Plan Initial physical therapy evaluation performed. Patient presents below baseline at this time in functional mobility, transfers, gait, and strength. PT recommending pt have 24/7 assistance at home upon d/c d /t increased fall risk. PT also recommending pt use RW for all mobility. PT recommending PT services. If pt does not have adequate 24/7 assistance at home, PT recommending rehab placement. Pt would benefit from skilled PT while at [facility] to prevent further functional decline and maximize safety with mobility. Eval Complexity Eval Charge Codes 45293 - Moderate Complexity PHYSICIAN CERTIFICATION: I certify the specified therapy services for Yared Brown are required, authorized, and reviewed every 30 days.
[2025-08-04 12:13] LABS: Iron 36 ug/dL (37-170)
[2025-08-04 12:24] LABS: Total Iron Binding Capacity 162 ug/dL (265-497)
[2025-08-04 12:50] LABS: Ferritin 431 ng/ml (11.1-264)
--- NOTE | 2025-08-04 13:39 | EXP.CARD.CON ---
History of Present Illness History of Present Illness Consult date: 08/04/25 Requesting physician: Orlando Villanueva Chief complaint: Shortness of breath Additional Medical History:: Right atrial thrombus History of present illness: This is an 84-year-old white female who presented to the emergency department at [facility] with a 2-week history of shortness of breath with minimal exertion. The patient had also been having shortness of breath when lying flat. Her symptoms were worse with exertion and did improve with rest but did not resolve. She went to the hospital at [facility] because of worsening symptoms. The patient was found to have a right atrial thrombus that appears to extend down the IVC and coming from the renal vein. She was transferred here for further evaluation and treatment. This morning she states that her shortness of breath is better but she is unable to lie flat and states sitting up in the bed. She denies any chest pain or pressure. She denies any fever, chills, nausea, vomiting or diarrhea. The patient does have a history of renal cell carcinoma which she has elected no treatment for currently. This thrombus that she has in her right atrium is likely extending from her renal vein because of this renal cell carcinoma. She is going to undergo thrombectomy today of the right atrial thrombus. [facility] Disclaimer: The information contained in this section may have been updated after the patient was seen, as this information can be updated by other users. Medical History (Updated 08/04/25 @ 13:42 by Lidia Salas APRN) Right atrial thrombus Anxiety CKD (chronic kidney disease) Iron deficiency anemia Dementia Renal cell cancer CVA (cerebral vascular accident) Restless leg Social History (Updated 08/01/25 @ 23:34 by Will Prather APRN) Smoking Status: Never smoker alcohol intake: never current occupational status: retired Travel in the last 8 weeks?: None Have you lived/traveled outside [place] in past 30 days?: No Contact w/someone who lives/traveled outside US past 30 days?: No Exposure to someone with infectious disease in past 14 days?: No Do you have a fever (greater than 100.4 F or 38 C)?: No Have you tested positive for COVID-19?: No Exposed to someone with COVID-19 in past 14 days?: No Do you have a sore throat?: No Do you have a cough?: No Do you have any weakness?: No Do you have any diarrhea?: No Are you experiencing any unusual bleeding?: No Do you have any muscle aches/pain?: No Do you have any abdominal pain?: No Are you experiencing loss of taste or smell?: No Review of Systems Review of Systems Review of systems:: pertinent systems reviewed and negative unless documented below Constitutional Constitutional: Reports system reviewed and no additional complaints, except as documented and Reports fatigue Eyes Eyes: Reports system reviewed and no additional complaints, except as documented ENT Ears, Nose, Mouth, and Throat: Reports system reviewed and no additional complaints, except as documented *Cardiovascular Cardiovascular: Reports system reviewed and no additional complaints, except as documented, Denies chest pain and Reports dyspnea on exertion *Respiratory Respiratory: Reports system reviewed and no additional complaints, except as documented and Reports dyspnea on exertion *Gastrointestinal Gastrointestinal: Reports system reviewed and no additional complaints, except as documented *Genitourinary Genitourinary: Reports system reviewed and no additional complaints, except as documented *Musculoskeletal Musculoskeletal: Reports system reviewed and no additional complaints, except as documented Integumentary/Breasts Skin/Breast: Reports system reviewed and no additional complaints, except as documented *Neurologic Neurologic: Reports system reviewed and no additional complaints, except as documented Psychiatric Psychiatric: Reports system reviewed and no additional complaints, except as documented Endocrine Endocrine: Reports system reviewed and no additional complaints, except as documented and Reports fatigue Hematologic/Lymphatic Hematologic/Lymphatic: Reports system reviewed and no additional complaints, except as documented Allergic/Immunologic Allergic/Immunologic: Reports system reviewed and no additional complaints, except as documented Exam Data for Last 24 hours Vital signs and Labs for Last 24 Hours: Temp Pulse Resp BP Pulse Ox O2 Del Method O2 Flow Rate 98.7 F 89 18 152/70 H 100 Nasal Cannula 2 08/04/25 12:55 08/04/25 12:55 08/04/25 12:55 08/04/25 12:55 08/04/25 12:55 08/04/25 11:20 08/04/25 11:20 Laboratory Results - last 24 hr 08/04/25 06:20: WBC 6.5, RBC 2.43 L, Hgb 6.2 L*, Hct 21.0 L, MCV 86.4, MCH 25.5 L, MCHC 29.5 L, RDW 17.1, Plt Count 293, MPV 9.4, Neut % (Auto) 68.0, Lymph % (Auto) 17.2, Garza % (Auto) 11.3 H, Eos % (Auto) 2.6, Baso % (Auto) 0.3, Neut # (Auto) 4.4, Lymph # (Auto) 1.1, Garza # (Auto) 0.7, Eos # (Auto) 0.2, Baso # (Auto) 0.0, Sodium 138, Potassium 3.8, Chloride 106, Carbon Dioxide 26, Anion Gap 9.8, BUN 51 H, Creatinine 2.90 H, Estimated Creat Clear 16, Estimated GFR 15 L*, Est GFR ( Amer) 19 L*, Glucose 109 H, Calcium 7.8 L, Total Bilirubin 0.3, AST 14, ALT 9 L, Alkaline Phosphatase 112, Total Protein 6.5, Albumin 2.7 L, Globulin 3.8 H, Albumin/Globulin Ratio 0.7 L, TSH 0.57, Blood Type Confirm O Positive 08/04/25 08:14: Retic Count (auto) 2.5, Iron 36 L, TIBC 162 L, Iron Saturation 22.13125, Ferritin 431 H, Blood Type O Positive, Antibody Screen Negative, Crossmatch (AHG) See Detail I & O for Last 24 hours: Intake & Output 08/01/25 08/02/25 08/03/25 08/04/25 23:59 23:59 23:59 23:59 Intake Total 1160 / 1410 1919 / 0 0 / 0 Output Total 550 / 550 1919 / 192 Balance - 610 / 860 0 / 0 0 / 0 Weight 151 lb 3 oz 150 lb 3.003 oz 146 lb 151 lb 4.8 oz Constitutional Constitutional: no acute distress and average body habitus *Routine HEENT Exam Head: Present normocephalic and atraumatic ENT: Present mucous membranes moist *Routine Neck Exam Neck: Present supple, full ROM and normal carotid upstroke; Absent JVD, carotid bruit or lymphadenopathy *Routine Respiratory Exam Respiratory: Present CTA bilaterally, normal respiratory effort, able to speak in complete sentences and symmetric chest movement *Routine Cardiovascular Exam Cardiovascular: Present RRR, Normal S1 and Normal S2; Absent murmur or gallop *Routine Abdominal Exam Abdominal: Present soft and normoactive bowel sounds; Absent tenderness, distended or organomegaly *Routine Extremities Exam Extremities: Present full ROM, pulses intact and normal capillary refill; Absent cyanosis, clubbing or edema *Routine Skin Exam Skin: Present intact and warm; Absent erythema *Routine Neurological Exam Neurological: Present alert, oriented X3 and CN II-XII intact; Absent sensory deficit or motor deficit Routine Psychiatric Exam Psychiatric: Present normal affect Meds Home Medications and Allergies Home Medications ?Medication ?Instructions ?Recorded ?Confirmed ?Type alprazolam 0.5 mg tablet 0.5 mg PO TIDP PRN Anxiety 08/01/25 08/02/25 History aspirin 81 mg capsule 81 mg PO DAILY 08/01/25 08/01/25 History donepezil 5 mg tablet 5 mg PO DAILY 08/01/25 08/01/25 History ferrous gluconate 324 mg (38 mg 324 mg PO DAILY 08/01/25 08/02/25 History iron) tablet gabapentin 100 mg capsule 100 mg PO HS 08/01/25 08/01/25 History mecobalamin (vitamin B12) 1,000 1,000 mcg PO DAILY 08/01/25 08/01/25 History mcg chewable tablet (B12 Active) New Prescriptions to Start Prescriptions: Allergies Allergy/AdvReac Type Severity Reaction Status Date / Time No Known Allergies Allergy Verified 08/01/25 23:07 Assessment and Plan *Assessment and plan (1) Right atrial thrombus: Status: Acute Category: Medical Code(s): I51.3 - Intracardiac thrombosis, not elsewhere classified (2) Pulmonary edema: Status: Acute Qualifiers: Chronicity: acute Qualified Code(s): J81.0 - Acute pulmonary edema Category: Medical Code(s): J81.1 - Chronic pulmonary edema (3) Elevated brain natriuretic peptide (BNP) level: Status: Acute Category: Medical Code(s): R79.89 - Other specified abnormal findings of blood chemistry (4) Acute hypoxic respiratory failure: Status: Acute Category: Medical Code(s): J96.01 - Acute respiratory failure with hypoxia (5) Anemia: Status: Acute Qualifiers: Anemia type: unspecified type Qualified Code(s): D64.9 - Anemia, unspecified Category: Medical Code(s): D64.9 - Anemia, unspecified (6) Chronic kidney disease: Status: Acute Qualifiers: Chronic kidney disease stage: unspecified stage Qualified Code(s): N18.9 - Chronic kidney disease, unspecified Category: Medical Code(s): N18.9 - Chronic kidney disease, unspecified (7) Elevated troponin: Status: Acute Category: Medical Code(s): R79.89 - Other specified abnormal findings of blood chemistry (8) Renal cancer: Status: Acute Qualifiers: Laterality: unspecified laterality Qualified Code(s): C64.9 - Malignant neoplasm of unspecified kidney, except renal pelvis Category: Medical Code(s): C64.9 - Malignant neoplasm of unspecified kidney, except renal pelvis Plan Plan: 1. The patient was admitted to the hospital due to a right atrial thrombus. The patient has been on Lovenox over the weekend for anticoagulation. However her hemoglobin has dropped to 6.2 so her Lovenox is on hold this morning. 2. The patient has an extensive thrombus from her right atrium extending down her IVC and down to what appears to be her renal vein. The patient will undergo mechanical thrombectomy of the right atrial thrombus today. 3. Dr. Steiner has had an extensive conversation with the patient, her daughter, her son and her granddaughter about the risks and benefits of the procedure. They have all verbalized understanding. They are aware that she does have high risk of mortality during this procedure and from the thrombus itself. They are all agreeable in proceeding with mechanical thrombectomy of the right atrial thrombus today. 4. At the same time as the right atrium thrombectomy the patient will also undergo GLORY so there is visualization of the thrombus during the procedure. The patient and the family have been Eskandar submitted to proceeding with GLORY. They have verbalized understanding and are agreeable to proceeding with this procedure as well. 5. Following the mechanical thrombectomy if a clot is able to be removed and IVC filter will be placed because the patient is profoundly anemic while on anticoagulation so she will likely not tolerate long-term anticoagulation. The patient and family have been educated the risk and benefits of proceeding with IVC filter placement. They verbalized understanding and are agreeable in proceeding with this procedure as well. 6. No plans for invasive left cardiac catheterization at this time. She did have an elevated troponin but this is most likely a type II non-STEMI from the large right atrial thrombus. 7. Her blood pressure is well-controlled. 8. Her LDL goal is less than 55. Will get a lipid panel. 9. The patient is anemic today with a hemoglobin of 6.2. She will be transfused with packed red blood cells today due to her profound anemia. 10. The patient does have renal cell carcinoma for which she has chosen not to have treatment up to this point. However today she says she is interested in seeking treatment for her renal cell carcinoma. Once this thrombus has been evacuated then we can make referral for oncology for treatment of her renal cell carcinoma. 11. The patient does have chronic kidney disease. Her creatinine is up to 2.9 today. Will continue to follow her renal function. 12. The patient does have intermittent dementia. She is alert and oriented x 3 during our evaluation today. 13. The patient's BNP is elevated over 100,000. Once the thrombus has been evacuated then we will need to consider diuresing her with IV Lasix. 14. Further recommendations will be made pending the patient's response to treatment and the results of her thrombectomy, GLORY and IVC filter placement today. Thank you for the opportunity to help participate in the care of this patient. All recommendations and orders are per Dr. Rich. Addendum: 90% of the right atrial clot was evacuated. However a small nonmobile thrombus remains adhered to the right atrium. The patient still has thrombus noted to the IVC, renal vein and hepatic vein. IVC filter was not able to be placed due to the extensive thrombus/tumor mix in the IVC/renal vein/hepatic vein. No anticoagulation for now due to acute blood loss anemia. Will try to rechallenge her with Eliquis possibly on an outpatient basis if her anemia remains stable in the outpatient setting.
[2025-08-04] MEDS: 0.9 % SODIUM CHLORIDE 500 ML 25 ML IV (14:10)
[2025-08-04] MEDS: LIDOCAINE 1% 10ML MDV 10 ML IJ (14:10)
[2025-08-04] MEDS: LABETALOL 20MG/4ML SYRINGE 20 MG IV (15:08)
--- NOTE | 2025-08-04 18:46 | EXP.PN ---
Subjective *Date: 08/04/25 *Time: 18:46 Interval history: Patient feeling more fatigued today, did not sleep well last night. Otherwise no complaints. Dr. Steiner at bedside explaining risks and benefits of thrombectomy to patient and family. Exam Data for Last 24 hours Vital signs and Labs for Last 24 Hours: Temp Pulse Resp BP Pulse Ox O2 Del Method O2 Flow Rate 98.7 F 74 14 143/72 H 91 L Nasal Cannula 5 08/04/25 12:55 08/04/25 15:31 08/04/25 15:31 08/04/25 15:31 08/04/25 15:31 08/04/25 15:31 08/04/25 15:31 Laboratory Results - last 24 hr 08/04/25 06:20: WBC 6.5, RBC 2.43 L, Hgb 6.2 L*, Hct 21.0 L, MCV 86.4, MCH 25.5 L, MCHC 29.5 L, RDW 17.1, Plt Count 293, MPV 9.4, Neut % (Auto) 68.0, Lymph % (Auto) 17.2, [place] % (Auto) 11.3 H, Eos % (Auto) 2.6, Baso % (Auto) 0.3, Neut # (Auto) 4.4, Lymph # (Auto) 1.1, [place] # (Auto) 0.7, Eos # (Auto) 0.2, Baso # (Auto) 0.0, Sodium 138, Potassium 3.8, Chloride 106, Carbon Dioxide 26, Anion Gap 9.8, BUN 51 H, Creatinine 2.90 H, Estimated Creat Clear 16, Estimated GFR 15 L*, Est GFR ( Amer) 19 L*, Glucose 109 H, Calcium 7.8 L, Total Bilirubin 0.3, AST 14, ALT 9 L, Alkaline Phosphatase 112, Total Protein 6.5, Albumin 2.7 L, Globulin 3.8 H, Albumin/Globulin Ratio 0.7 L, TSH 0.57, Blood Type Confirm O Positive 08/04/25 08:14: Retic Count (auto) 2.5, Iron 36 L, TIBC 162 L, Iron Saturation 22.93552, Ferritin 431 H, Blood Type O Positive, Antibody Screen Negative, Crossmatch (AHG) See Detail I & O for Last 24 hours: Intake & Output 08/01/25 08/02/25 08/03/25 08/04/25 23:59 23:59 23:59 23:59 Intake Total 1160 / 1410 1919 770 / 770 Output Total 550 / 550 1919 / 1919 200 / 200 Balance - 275 610 / 860 0 / 0 570 / 570 Weight 68.577 kg 68.124 kg 66.224 kg 68.629 kg Constitutional Constitutional: no acute distress *Routine HEENT Exam Head: Present normocephalic Eye: Present EOMI and PERRL ENT: Present mucous membranes moist *Routine Neck Exam Neck: Present supple; Absent lymphadenopathy *Routine Respiratory Exam Respiratory: Present CTA bilaterally *Routine Cardiovascular Exam Cardiovascular: Present RRR *Routine Abdominal Exam Abdominal: Present soft and normoactive bowel sounds; Absent tenderness *Routine Extremities Exam Extremities: Absent cyanosis, clubbing or edema *Routine Skin Exam Skin: Present warm; Absent rash *Routine Neurological Exam Neurological: Present alert and oriented X3 Assessment and Plan *Assessment and plan (1) Renal cancer: Status: Acute Qualifiers: Laterality: unspecified laterality Qualified Code(s): C64.9 - Malignant neoplasm of unspecified kidney, except renal pelvis Category: Medical Code(s): C64.9 - Malignant neoplasm of unspecified kidney, except renal pelvis (2) Atrial thrombus: Status: Acute Category: Medical Code(s): I51.3 - Intracardiac thrombosis, not elsewhere classified Plan Anthony Sims is a 84-year-old pleasant female who presented as a transfer from [facility] for large left atrial thrombus in the setting of renal cell carcinoma, new onset acute heart failure, NSTEMI. #Shortness of breath #Large left atrial thrombus #IVC thrombus #Metastatic renal cell carcinoma ? Presented to [facility] with shortness of breath, found to have large left atrial thrombus on ECHO. Dr. Steiner recommended transfer to our facility for further evaluation and embolectomy/angiogram. ? Patient does have history of renal cell carcinoma, does not want to pursue treatment. Unfortunately does put her at a higher risk for thrombosis. ? LDL 78, follow-up A1c and lipid panel. ? Cardiology consulted, s/p left atrial and IVC partial thrombectomy on 08/04/2025. RCC tumor burden was noted to be in the IVC indicating metastatic RCC. ? Initially treated with therapeutic Lovenox over the weekend, patient developed acute on chronic anemia. See separate problem. Will hold further anticoagulation. ? Lower extremity venous Doppler negative for DVT. ? Patient and at bedside have expressed that they do not want treatment for renal cell carcinoma, would likely be interested in hospice care. Further goals of care tomorrow. ? Continuous cardiac telemetry. #New onset heart failure, unknown type #NSTEMI, likely type II ? Presented to [facility] with shortness of breath, found to have pulmonary edema with BNP in 5000's. proBNP 100,000 here in the setting of left atrial thrombus. ? Hold diuretic at this time as kidney function bumped 2.4-2.9 during admission. ? Troponin plateaued at 0.08, likely demand ischemia in the setting of HFpEF and possible PE. ? Follow-up GLORY report. ? Holding aspirin due to anemia. #Acute on chronic anemia ? Hemoglobin dropped from 7.4-6.2 today in the setting of therapeutic Lovenox as above. No evidence of GI bleed at this time. ? Reticulocyte count normal, ferritin normal. ? S/p 2 unit PRBC transfusion, follow-up repeat H&H. ? Consider GI consultation pending goals of care conversation tomorrow. ? Continue IV Protonix 40 mg twice daily #Dementia ? Continue home donepezil. #Peripheral neuropathy ? Continue home gabapentin. #Anxiety ? Continue home Xanax 0.5 mg 3 times daily as needed. Full code DVT prophylaxis: Therapeutic Lovenox Home medications: Restarted.
[2025-08-04 19:08] LABS: Occult Blood,Stool Negative (Negative)
[2025-08-04 19:48] LABS: Hematocrit 29.5 % (37.0-47.0)
[2025-08-04 19:56] LABS: Hemoglobin 9.0 g/dL (12.2-16.2)
[2025-08-04] MEDS: OLANZapine 5 MG ODT TABLET 10 MG SL (20:20)
[2025-08-04] MEDS: GABAPENTIN 100MG CAPSULE 100 MG PO (20:20)
[2025-08-04] MEDS: PANTOPRAZOLE 40MG VIAL 40 MG IV (20:20)
[2025-08-05] VITALS (22 sets, daily range): BP systolic 126–194; BP diastolic 5–98; PULSE 65–101; RESP 12–18; TEMP 36.8–37.4; O2SAT 93–100; BMI 25.8
[2025-08-05 00:44] LABS: Hemoglobin A1C 5.0 % (4.0-6.0)
--- NOTE | 2025-08-05 06:00 | CA_ITS ---
APPROVED REPORT EXAM: Comprehensive 2D, Doppler, and color-flow Echocardiogram Viscosity Inspector: Erin Nowak RDCS Ht: 5 ft 4 in Wt: 151lbs BSA: 1.74 BP: 152/70 mmHg Indications: LIMITED RA/IVC CHECK THROMBUS Other Information Study Quality: Fair Conclusion This is a limited TTE on day-1 post thrombectomy procedure after RA thrombus evacuatoin. Limited windows are obtained. The RA appears normal in size with no evidence of RA thrombus. The RA lumen appears clear. The IVC is adequately visualized with presence of IVC thrombus approximately 2-3 cm into the IVC. Compared to prior GLORY performed intraprocedurally, the presence of IVC thrombus is unchanged. Electronically signed by : Layla Palencia MD 08/08/2025 17:51:12
[2025-08-05] MEDS: IPRATROPIUM/ALBUTEROL 3 ML NEB IH ×4 (06:49→22:53)
[2025-08-05 06:53] LABS: Hematocrit 24.7 % (37.0-47.0); Immature Granulocytes % 0.4 %; Mean Corpuscular HGB Conc 30.4 g/dL (31.8-35.4); Mean Corpuscular Hemoglobin 26.2 pg (27.0-31.2); Mean Corpuscular Volume 86.4 fl (81-99); Nucleated Red Blood Cells % 0 %; Platelet Count 287 K/mm3 (142-424); Red Blood Count 2.86 M/mm3 (4.20-5.40); Red Cell Distribution Width-SD 50.6 fL; White Blood Count 6.9 K/mm3 (4.8-10.8)
[2025-08-05 07:17] LABS: Alanine Aminotransferase 10 U/L (12-78); Albumin Level 2.7 g/dl (3.5-5.0); Albumin/Globulin Ratio 0.7 (1.1-1.8); Alkaline Phosphatase 96 U/L (38-126); Anion Gap 12.1 mEq/L (5-15); Aspartate Amino Transferase 22 U/L (14-36); Bilirubin,Total 0.5 mg/dl (0.2-1.3); Blood Urea Nitrogen 50 mg/dl (7-17); Calcium 7.6 mg/dl (8.4-10.2); Carbon Dioxide 21 mmol/L (22.0-30.0); Chloride 105 mmol/L (98-107); Creatinine Clearance Estimated 21 mL/min (50-200); Creatinine,Serum 2.20 mg/dl (0.52-1.04); Estimated Glomerular Filt Rate 21 ml/min (>60); GFR (African American) 26 ML/MIN (>60); Globulin 3.9 g/dL (1.3-3.2); Glucose 126 mg/dl (74-100); Potassium 4.1 mmoL/L (3.5-5.1); Sodium 134 mmol/L (136-145); Total Protein,Serum 6.6 g/dl (6.3-8.2)
[2025-08-05 07:43] LABS: Hemoglobin 7.5 g/dL (12.2-16.2)
[2025-08-05] MEDS: PANTOPRAZOLE 40MG VIAL 40 MG IV ×2 (08:38→20:10)
[2025-08-05] MEDS: POLYETHYLENE GLYCOL 3350 17 GM PACKET PO (08:38)
[2025-08-05] MEDS: SODIUM CHLORIDE 0.9% 10ML VIAL 10 ML IV (08:38)
--- NOTE | 2025-08-05 11:48 | SW/DCPLANNER ---
Addendum entered by Eulalia Hancock 08/06/25 11:23: Per [place] w/ [facility] DME will be set up around 4PM. I have relayed information to patient's nurse and transportation will be arranged between 4:30-5. Addendum entered by Eulalia Hancock 08/06/25 09:27: [facility] nurse at bedside to evaluate. Patient's misunderstood and was waiting for nurse at home. Per [facility] nurse she will meet at the home, complete paperwork and order DME. Once DME has arrived in the home nurse will contact CM and we will discharge patient home via ambulance. Addendum entered by Euallia Hancock 08/05/25 13:03: The plan for this patient is to have [facility] nurse evaluate patient tomorrow morning then discharge home. Patient/family are agreeable w/ this plan. Addendum entered by Eulalia Hancock 08/05/25 12:40: Per [place] w/ [facility] they can not have a nurse evaluate patient till tomorrow morning at 9AM 08/06. I have updated Dr Gonsalez to make decision of discharge home today w/ [facility] to follow up tomorrow morning at home vs [facility] to follow up at [facility] bedside tomorrow morning. Original Note: I received a Hospice consult for this patient. I spoke w/ patient and her regarding plans once medically stable for discharge and Hospice services. Patien/ are agreeable to Hospice services. Patient information has been faxed to [facility] this AM to review referral. I will follow up w/ [facility] once information is reviewed. Per Dr Gonsalez if services can be set up in the home patient could discharge later today. CM will continue to follow up.
[2025-08-05] MEDS: FUROSEMIDE 40MG/4ML VIAL 40 MG IV ×2 (12:20→17:32)
--- NOTE | 2025-08-05 13:12 | P.PN_ITS ---
Subjective Subjective Date: 08/05/25 Time: 11:30 Principal diagnosis: right atrium thombus, IVC thrombus Interval history: This is an 84-year-old female who has a right atrium thrombus extending down her IVC and into the renal and hepatic veins. The patient underwent partial thrombectomy yesterday with 90% evacuation of the right atrium. There is still persistent thrombus/tumor mix in her IVC, renal vein and hepatic veins. The patient was unable to tolerate anticoagulation due to profound acute blood loss anemia. This morning she states that she feels really good. She denies any chest pain or pressure. She denies any shortness of breath or edema. She denies any fever, chills, nausea, vomiting or diarrhea. Exam Data for Last 24 hours Vital signs and Labs for Last 24 Hours: Temp Pulse Resp BP Pulse Ox O2 Del Method O2 Flow Rate 98.2 F 99 H 16 169/74 H 100 Nasal Cannula 2 08/05/25 12:00 08/05/25 12:00 08/05/25 12:00 08/05/25 12:00 08/05/25 12:00 08/05/25 12:00 08/05/25 12:00 Laboratory Results - last 24 hr 08/04/25 06:20: Hemoglobin A1c 5.0 08/04/25 08:14: Blood Type O Positive, Antibody Screen Negative, Crossmatch (AHG) See Detail 08/04/25 17:21: Stool Occult Blood Negative 08/04/25 19:41: Hgb 9.0 L D, Hct 29.5 L 08/05/25 06:08: WBC 6.9, RBC 2.86 L, Hgb 7.5 L D, Hct 24.7 L, MCV 86.4, MCH 26.2 L, MCHC 30.4 L, RDW 16.0, Plt Count 287, MPV 9.6, Neut % (Auto) 76.3, Lymph % (Auto) 12.8, [place] % (Auto) 8.3, Eos % (Auto) 1.9, Baso % (Auto) 0.3, Neut # (Auto) 5.3, Lymph # (Auto) 0.9, [place] # (Auto) 0.6, Eos # (Auto) 0.1, Baso # (Auto) 0.0, Sodium 134 L, Potassium 4.1, Chloride 105, Carbon Dioxide 21 L, Anion Gap 12.1, BUN 50 H, Creatinine 2.20 H D, Estimated Creat Clear 21, Estima antoinette GFR 21 L, Est GFR ( Amer) 26 L D, Glucose 126 H, Calcium 7.6 L, Total Bilirubin 0.5, AST 22 D, ALT 10 L, Alkaline Phosphatase 96, Total Protein 6.6, Albumin 2.7 L, Globulin 3.9 H, Albumin/Globulin Ratio 0.7 L I & O for Last 24 hours: Intake & Output 08/02/25 08/03/25 08/04/25 08/05/25 23:59 23:59 23:59 23:59 Intake Total 1160 / 1410 1920 / 1920 1014.583 / 1214.583 450 / 450 Output Total 550 / 550 1920 / 1920 700 / 700 400 / 400 Balance 610 / 860 0 / 0 314.583 / 514.583 50 / 50 Weight 150 lb 3.003 oz 146 lb 151 lb 4.8 oz 151 lb 4.817 oz Constitutional Constitutional: no acute distress, average body habitus and chronically ill appearing *Routine HEENT Exam Head: Present normocephalic and atraumatic ENT: Present mucous membranes moist *Routine Neck Exam Neck: Present supple, full ROM and normal carotid upstroke; Absent JVD, carotid bruit or lymphadenopathy *Routine Respiratory Exam Respiratory: Present CTA bilaterally, normal respiratory effort, able to speak in complete sentences and symmetric chest movement *Routine Cardiovascular Exam Cardiovascular: Present RRR, Normal S1 and Normal S2; Absent murmur or gallop *Routine Abdominal Exam Abdominal: Present soft and normoactive bowel sounds; Absent tenderness, distended or organomegaly *Routine Extremities Exam Extremities: Present full ROM, pulses intact and normal capillary refill; Absent cyanosis, clubbing or edema *Routine Skin Exam Skin: Present intact and warm; Absent erythema *Routine Neurological Exam Neurological: Present alert, oriented X3 and CN II-XII intact; Absent sensory deficit or motor deficit Routine Psychiatric Exam Psychiatric: Present normal affect Progress Note: A&P Assessment and plan (1) Right atrial thrombus: Status: Acute (2) 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 The patient was admitted to the hospital due to a right atrial thrombus. The patient was on Lovenox over the weekend for anticoagulation. However her hemoglobin has dropped to 6.2 yesterday so her Lovenox was stopped. 2. The patient has an extensive thrombus from her right atrium extending down her IVC and down to what appears to be her renal vein and hepatic vein. She underwent thrombectomy yesterday with 90% of the right atrium clot evacuated. However small, nonmobile thrombus remained adhered to the right atrium. 3. The patient still has thrombus noted to the IVC, renal vein and hepatic vein. IVC filter was not able to be placed due to the extensive thrombus/tumor mix in the IVC/renal vein/hepatic vein. 4. No plans for invasive left cardiac catheterization at this time. She did have an elevated troponin but this is most likely a type II non-STEMI from the large right atrial thrombus. 5. Her blood pressure is well-controlled. 6. Her LDL goal is less than 55. LDL is 74. 7. The patient was transfused with packed red blood cells yesterday. Her hemoglobin is up to 7.5 today. 8. Renal cell carcinoma is present. This is most likely the cause of her thrombus. The patient has decided to enroll in hospice care due to her end- stage renal cell carcinoma. 9. The patient does have chronic kidney disease. Creatinine is down to 2.2 today. 10. The patient does have intermittent dementia. She is alert and oriented x 3 during our evaluation today. 11. The patient's BNP is elevated over 100,000. Echocardiogram this morning shows her EF is around 35 to 40%. She would benefit from diuresis because of her acute HFrEF. Will start her on Lasix 40 mg IV twice daily just for comfort and symptom management. 12. No anticoagulation at this time for thrombosis due to acute blood loss a nemia. 13. No further recommendations at this time from a cardiac standpoint. The patient is being discharged home today with hospice. Thank you for the opportunity to help participate in the care of this patient. All recommendations and orders are per Dr. Rich.
--- NOTE | 2025-08-05 14:11 | P.PN_ITS ---
Subjective *Date: 08/05/25 *Time: 17:11 Interval history: Feeling somewhat better today but still quite weak and short of breath. Continues to require 2 L nasal cannula oxygen Medical Exam Vital signs and Labs for Last 24 Hours: Vital Signs Temp Pulse Pulse Resp BP BP Pulse Ox 08/05/25 13:00 08/05/25 12:00 98.2 F 99 H 16 169/74 H 100 08/05/25 11:05 78 08/05/25 11:05 80 08/05/25 11:00 08/05/25 08:58 08/05/25 08:15 08/05/25 08:00 90 08/05/25 08:00 98.5 F 98 H 18 161/83 H 98 08/05/25 06:50 88 08/05/25 06:50 88 08/05/25 06:50 95 08/05/25 06:35 08/05/25 05:00 08/05/25 04:00 98.5 F 93 H 18 148/5 H 97 08/05/25 04:00 90 08/05/25 03:00 08/05/25 01:03 87 08/05/25 01:02 85 08/05/25 01:00 08/05/25 00:00 95 H 08/05/25 00:00 98.5 F 101 H 16 153/72 H 95 08/04/25 23:00 08/04/25 21:00 08/04/25 20:00 85 08/04/25 20:00 08/04/25 20:00 98.1 F 95 H 18 167/76 H 96 08/04/25 19:05 08/04/25 18:45 85 08/04/25 18:30 87 08/04/25 18:30 95 H 16 168/80 H 97 08/04/25 18:00 88 18 174/91 H 98 08/04/25 17:30 85 18 173/88 H 85 L 08/04/25 17:19 08/04/25 17:00 86 141/79 H 92 L 08/04/25 16:30 76 18 157/91 H 100 08/04/25 16:15 76 18 167/83 H 97 08/04/25 16:00 77 16 146/80 H 97 08/04/25 15:45 98.6 F 79 16 147/79 H 98 08/04/25 15:31 74 14 143/72 H 91 L 08/04/25 15:25 75 12 147/74 H 90 L 08/04/25 15:20 75 20 149/70 H 91 L 08/04/25 15:15 93 H 20 145/76 H 93 L 08/04/25 15:12 76 18 154/68 H 91 L 08/04/25 15:09 78 18 154/72 H 92 L 08/04/25 15:08 206/110 H 08/04/25 15:06 77 18 155/71 H 93 L 08/04/25 15:03 72 18 154/77 H 93 L 08/04/25 15:00 90 18 194/102 H 93 L 08/04/25 14:57 95 H 101 H 18 190/113 H 93 L 08/04/25 14:40 16 208/131 H 99 08/04/25 14:35 109 H 16 193/125 H 99 08/04/25 14:30 106 H 16 180/110 H 99 08/04/25 14:25 90 16 194/129 H 100 08/04/25 14:15 90 16 164/96 H 100 O2 Del Method O2 Flow Rate 08/05/25 13:00 Nasal Cannula 2 08/05/25 12:00 Nasal Cannula 2 08/05/25 11:05 08/05/25 11:05 08/05/25 11:00 Nasal Cannula 2 08/05/25 08:58 Nasal Cannula 2 08/05/25 08:15 Nasal Cannula 2 08/05/25 08:00 08/05/25 08:00 Nasal Cannula 2 08/05/25 06:50 08/05/25 06:50 08/05/25 06:50 Nasal Cannula 2 08/05/25 06:35 Nasal Cannula 2 08/05/25 05:00 Nasal Cannula 2 08/05/25 04:00 Nasal Cannula 2 08/05/25 04:00 08/05/25 03:00 Nasal Cannula 2 08/05/25 01:03 08/05/25 01:02 08/05/25 01:00 Room Air 08/05/25 00:00 08/05/25 00:00 Nasal Cannula 2 08/04/25 23:00 Room Air 08/04/25 21:00 Room Air 08/04/25 20:00 08/04/25 20:00 Room Air 08/04/25 20:00 Nasal Cannula 2 08/04/25 19:05 Nasal Cannula 2 08/04/25 18:45 08/04/25 18:30 08/04/25 18:30 Nasal Cannula 2 08/04/25 18:00 Room Air 08/04/25 17:30 Nasal Cannula 2 08/04/25 17:19 Nasal Cannula 2 08/04/25 17:00 Nasal Cannula 2 08/04/25 16:30 Nasal Cannula 2 08/04/25 16:15 Nasal Cannula 2 08/04/25 16:00 Nasal Cannula 2 08/04/25 15:45 Room Air 08/04/25 15:31 Nasal Cannula 5 08/04/25 15:25 Nasal Cannula 5 08/04/25 15:20 Nasal Cannula 6 08/04/25 15:15 Nasal Cannula 6 08/04/25 15:12 Nasal Cannula 6 08/04/25 15:09 Nasal Cannula 6 08/04/25 15:08 08/04/25 15:06 Nasal Cannula 6 08/04/25 15:03 Nasal Cannula 6 08/04/25 15:00 Nasal Cannula 6 08/04/25 14:57 Nasal Cannula 6 08/04/25 14:40 08/04/25 14:35 08/04/25 14:30 08/04/25 14:25 08/04/25 14:15 Intake and Output 08/04/25 08/05/25 08/05/25 23:59 07:59 15:59 Intake Total 514.583 / 1214.583 200 / 650 450 / 650 Output Total 500 / 700 400 / 400 Balance 14.583 / 514.583 200 / 250 50 / 250 Intake: Intake, Oral Amount 270 / 470 200 / 650 450 / 650 Intake, Total IV Amount 244.583 / 244.583 0.9 % Sodium Chloride 500 ml @ 244.583 / 244.583 25 mls/hr IV .Q20H [facility] Rx#: [id number] Output: Output, Urine Amount 500 / 700 400 / 400 Other: Number of Unmeasured Voids 0 0 Number of Bowel Movements 1 1 Weight 68.629 kg 68.629 kg Patient Weight 08/05/25 23:59 Weight 68.629 kg Laboratory Results - last 24 hr 08/04/25 06:20: Hemoglobin A1c 5.0 08/04/25 08:14: Blood Type O Positive, Antibody Screen Negative, Crossmatch (AHG) See Detail 08/04/25 17:21: Stool Occult Blood Negative 08/04/25 19:41: Hgb 9.0 L D, Hct 29.5 L 08/05/25 06:08: WBC 6.9, RBC 2.86 L, Hgb 7.5 L D, Hct 24.7 L, MCV 86.4, MCH 26.2 L, MCHC 30.4 L, RDW 16.0, Plt Count 287, MPV 9.6, Neut % (Auto) 76.3, Lymph % (Auto) 12.8, [place] % (Auto) 8.3, Eos % (Auto) 1.9, Baso % (Auto) 0.3, Neut # (Auto) 5.3, Lymph # (Auto) 0.9, [place] # (Auto) 0.6, Eos # (Auto) 0.1, Baso # (Auto) 0.0, Sodium 134 L, Potassium 4.1, Chloride 105, Carbon Dioxide 21 L, Anion Gap 12.1, BUN 50 H, Creatinine 2.20 H D, Estimated Creat Clear 21, Estimated GFR 21 L, Est GFR ( Amer) 26 L D, Glucose 126 H, Calcium 7.6 L, Total Bilirubin 0.5, AST 22 D, ALT 10 L, Alkaline Phosphatase 96, Total Protein 6.6, Albumin 2.7 L, Globulin 3.9 H, Albumin/Globulin Ratio 0.7 L I & O for Labs for Last 24 Hours: Intake & Output 08/02/25 08/03/25 08/04/25 08/05/25 23:59 23:59 23:59 23:59 Intake Total 1160 / 1410 1919 / 1920 1014.583 / 1214.583 650 / 650 Output Total 550 / 550 1919 / 192 700 / 700 400 / 400 Balance 610 / 860 0 / 0 314.583 / 514.583 250 / 250 Weight 68.124 kg 66.224 kg 68.629 kg 68.629 kg Constitutional: Present mild distress, chronically ill appearing and cooperative Head: Present atraumatic Comment:: Bandage on the side of neck clean dry and intact Respiratory: Absent rhonchi, wheezes or crackles Cardiac: Present Regular Rhythm and Tachycardia GI: Present soft; Absent distention Extremities: Present edema (Trace bilateral lower extremity) Assessment and Plan *Assessment and plan (1) Renal cancer: Status: Acute Qualifiers: Laterality: unspecified laterality Qualified Code(s): C64.9 - Malignant neoplasm of unspecified kidney, except renal pelvis Category: Medical Code(s): C64.9 - Malignant neoplasm of unspecified kidney, except renal pelvis (2) Acute HFrEF (heart failure with reduced ejection fraction): Status: Acute Category: Medical Code(s): I50.21 - Acute systolic (congestive) heart failure (3) 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: Status: Acute Category: Medical Code(s): D49.511 - Neoplasm of unspecified behavior of right kidney; I82.220 - Acute embolism and thrombosis of inferior vena cava (4) Right atrial thrombus: Status: Acute Category: Medical Code(s): I51.3 - Intracardiac thrombosis, not elsewhere classified (5) Pulmonary edema: Status: Acute Qualifiers: Chronicity: acute Qualified Code(s): J81.0 - Acute pulmonary edema Category: Medical Code(s): J81.1 - Chronic pulmonary edema (6) Chronic kidney disease: Status: Acute Qualifiers: Chronic kidney disease stage: unspecified stage Qualified Code(s): N18.9 - Chronic kidney disease, unspecified Category: Medical Code(s): N18.9 - Chronic kidney disease, unspecified (7) Anemia: Status: Acute Qualifiers: Anemia type: unspecified type Qualified Code(s): D64.9 - Anemia, unspecified Category: Medical Code(s): D64.9 - Anemia, unspecified (8) Dementia: Status: Chronic Category: Medical Code(s): F03.90 - Unspecified dementia, unspecified severity, without behavioral disturbance, psychotic disturbance, mood disturbance, and anxiety Plan Yared Sims is a 84-year-old pleasant female who presented as a transfer from [facility] [address] for large left atrial thrombus in the setting of renal cell carcinoma, new onset acute heart failure, NSTEMI. Status post thrombectomy on 08/04. Further goals of care discussion with today, will discharge home with hospice in the morning. Problems addressed as follows: #Shortness of breath #Large left atrial thrombus #IVC thrombus #Metastatic renal cell carcinoma ? Presented to [facility] [address] with shortness of breath, found to have large left atrial thrombus on ECHO. Dr. Steiner recommended transfer to our facility for further evaluation and embolectomy/angiogram. ? Patient does have history of renal cell carcinoma, does not want to pursue treatment. Unfortunately does put her at a higher risk for thrombosis. ? LDL 78, follow-up A1c 5.0 ? Cardiology consulted, s/p left atrial and IVC partial thrombectomy on 08/04/2025. RCC tumor burden was noted to be in the IVC indicating metastatic RCC. ? Initially treated with therapeutic Lovenox over the weekend, patient developed acute on chronic anemia. ? Lower extremity venous Doppler negative for DVT. ? Patient and at bedside have expressed that they do not want treatment for renal cell carcinoma, further discussion about hospice today. Continues to have oxygen requirement. Anticipate discharge tomorrow with hospice. #New onset heart failure, unknown type #NSTEMI, likely type II ? Presented to [facility] [address] with shortness of breath, found to have pulmonary edema with BNP in 5000's. proBNP 100,000 here in the setting of left atrial thrombus. ? Discussed case cardio Elgie, recommend Lasix 40 mg IV twice daily. Kidney function improved today at 2.2 creatinine and BUN 50. ? Troponin plateaued at 0.08, likely demand ischemia in the setting of HFpEF and possible PE. #Acute on chronic anemia ? Hemoglobin dropped from 7.4-6.2 on 08/04. Responded well to 2 units of transfusion. Hemoglobin improved to 9, down to 7.5 this morning. Repeat transfusion of 1 unit today. White count 6.9. - Caution with anticoagulation. Will administer Lovenox 1 mg/kg once this afternoon. ? Reticulocyte count normal, ferritin normal. ? S/p 2 unit PRBC transfusion, follow-up repeat H&H. -Transfusion threshold hemoglobin less than 8 ? Continue IV Protonix 40 mg twice daily - Repeat CBC, CMP ordered for the morning. #Dementia: Continue home donepezil. #Peripheral neuropathy: Continue home gabapentin. #Anxiety: Continue home Xanax 0.5 mg 3 times daily as needed. Full code DVT prophylaxis: Therapeutic Lovenox regular diet
--- NOTE | 2025-08-05 17:11 | P.EN_ITS ---
Advance care planning note: Active diagnosis: Metastatic renal cell carcinoma, thrombus and tumor in right atria, dementia, Shortness of breath, IVC thrombus, new onset heart failure with preserved ejection fraction, NSTEMI type II, acute on chronic anemia, peripheral neuropathy The patient's active diagnoses are of sufficient risk that focused discussion on advanced care planning is indicated in order to allow the patient to thoughtfully consider personal goals of care; and, if situations arise that prevent the ability to personally give input, to ensure appropriate representati on of their personal desires through documentation or informed surrogate decision makers. Discussion: Persons present and participating in discussion: , patient, hospitalist (Dr. Gonsalez) Discussion: Extensive discussion with about patient's current state the widely metastatic state of her renal cell carcinoma with tumor noted in her renal vein, IVC, hepatic vein along with extensive clot burden. The continued progression of her disease without treatment. Patient and have not sought treatment prior and he does not want to treat at this time. Discussed that her condition is life-limiting. Discussed anticoagulation to decrease risk for further progression of clot burden but her cancer will continue to progress. Discussed considering hospice versus placement. and family would like to take patient home. Has been would like to pursue taking patient home with hospice. Will have hospice consult in the morning and discuss further goals of care as well as dispo plan. Time spent: Total time spent [id number] in education and discussion directly related to advance care plannin minutes Trey Gonsalez 08/05/2025
[2025-08-05] MEDS: GABAPENTIN 100MG CAPSULE 100 MG PO (20:09)
[2025-08-05] MEDS: OLANZapine 5 MG ODT TABLET 10 MG SL (20:09)
[2025-08-05 20:24] LABS: Hematocrit 28.6 % (37.0-47.0)
[2025-08-05 20:33] LABS: Hemoglobin 8.8 g/dL (12.2-16.2)
[2025-08-06] VITALS (9 sets, daily range): BP systolic 145–169; BP diastolic 71–85; PULSE 55–100; RESP 16–18; TEMP 36.6–37.1; O2SAT 91–98; BMI 25.6
[2025-08-06] MEDS: IPRATROPIUM/ALBUTEROL 3 ML NEB IH ×2 (06:25→10:23)
[2025-08-06 06:29] LABS: Hematocrit 27.4 % (37.0-47.0); Hemoglobin 8.5 g/dL (12.2-16.2); Immature Granulocytes % 0.4 %; Mean Corpuscular HGB Conc 31.0 g/dL (31.8-35.4); Mean Corpuscular Hemoglobin 26.8 pg (27.0-31.2); Mean Corpuscular Volume 86.4 fl (81-99); Nucleated Red Blood Cells % 0 %; Platelet Count 285 K/mm3 (142-424); Red Blood Count 3.17 M/mm3 (4.20-5.40); Red Cell Distribution Width-SD 49.9 fL; White Blood Count 6.8 K/mm3 (4.8-10.8)
[2025-08-06 06:36] LABS: Alanine Aminotransferase 12 U/L (12-78); Albumin Level 2.8 g/dl (3.5-5.0); Albumin/Globulin Ratio 0.8 (1.1-1.8); Alkaline Phosphatase 99 U/L (38-126); Anion Gap 11.0 mEq/L (5-15); Aspartate Amino Transferase 16 U/L (14-36); Bilirubin,Total 0.4 mg/dl (0.2-1.3); Blood Urea Nitrogen 56 mg/dl (7-17); Calcium 8.1 mg/dl (8.4-10.2); Carbon Dioxide 26 mmol/L (22.0-30.0); Chloride 104 mmol/L (98-107); Creatinine Clearance Estimated 16 mL/min (50-200); Creatinine,Serum 2.90 mg/dl (0.52-1.04); Estimated Glomerular Filt Rate 15 ml/min (>60); GFR (African American) 19 ML/MIN (>60); Globulin 3.4 g/dL (1.3-3.2); Glucose 111 mg/dl (74-100); Potassium 4.0 mmoL/L (3.5-5.1); Sodium 137 mmol/L (136-145); Total Protein,Serum 6.2 g/dl (6.3-8.2)
--- NOTE | 2025-08-06 07:38 | EXP.DC.SUM ---
General Admission date:: 08/01/25 Discharge date: 08/06/25 HPI HPI HPI: This is an 84-year-old female who has a past medical history significant for restless leg syndrome, CVA, renal cell cancer, dementia, iron deficiency/chronic kidney disease anemia, stage IV chronic kidney disease, anxiety, and depression who presents from outside facility due to right atrial thrombus. Due to patient's symptoms, she presented to their facility for evaluation. While at prior facility, 2D echo revealed an extensive thrombus in the right atrium, patient's chest x-ray was consistent with pulmonary edema, and her BNP was greater than 5000. As a result, patient's case was discussed with on-call corporate events director who recommended transfer to [facility] for thrombectomy. As a result, patient has been admitted for further management. During my evaluation of the patient, patient was alert and pleasantly confused. Family member reports that patient has had a 2-week history of shortness of air with minimal exertion. They endorse that patient has been having some shortness of air while laying flat. Patient does have a history of renal cell carcinoma but family does not want any aggressive treatment. Patient is currently denying any chest pain, lightheadedness, dizziness, fever, chills, rigors, nausea, vomiting, diarrhea. Additional pertinent labs obtained at prior facility revealed a BNP of greater than 5000, alkaline phosphate 150, hemoglobin 8.2, hematocrit of 27, troponin of 58, neutrophils 80%, blood glucose 146, BUN of 37, creatinine of 2.21, and GFR 21. Hospital Course Hospital Course Hospital Course: Yared Sims is a 84-year-old pleasant female who presented as a transfer from [facility] for large left atrial thrombus in the setting of renal cell carcinoma, new onset acute heart failure, NSTEMI. Status post thrombectomy on 08/04. Had further goals of care discussion with family. Will plan to discharge with hospice. Hospice evaluated this morning, discharge home today. Problems addressed as follows: #Shortness of breath #Large left atrial thrombus #IVC thrombus #Metastatic renal cell carcinoma ? Presented to [facility] with shortness of breath, found to have large left atrial thrombus on ECHO. Dr. Steiner recommended transfer to our facility for further evaluation and embolectomy/angiogram. Patient does have history of renal cell carcinoma, does not want to pursue treatment. Unfortunately does put her at a higher risk for thrombosis. Cardiology consulted, s/p left atrial and IVC partial thrombectomy on 08/04/2025. RCC tumor burden was noted to be in the IVC indicating metastatic RCC. Initially treated with Lovenox. Held because of anemia. Responded well to transfusion. Trialed with Lovenox with stable hemoglobin and no signs of bleeding, hematemesis, melena. Will initiate Eliquis 10 mg twice daily for 7 days, de-escalate to 5 mg twice daily thereafter. ? Lower extremity venous Doppler negative for DVT. Patient and at bedside have expressed that they do not want treatment for renal cell carcinoma, discussed hospice care. Patient's condition is terminal. Hospice evaluated on morning of discharge, will discharge to their care at home. - Continues to require supplemental oxygen due to shortness of breath. Continue 1 to 2 L as needed. Goal sats greater 90% or for comfort. #New onset heart failure, unknown type #NSTEMI, likely type II ? Presented to [facility] with shortness of breath, found to have pulmonary edema with BNP in 5000's. proBNP 100,000 here in the setting of left atrial thrombus. Discussed case cardiology. Initially treated with Lasix. Kidney function bumped from 2.2-2.9. Will hold Lasix at this time. Suspect elevated BNP related to possible PEs that are undiagnosed due to inability to do CTA with contrast because of kidney dysfunction. Troponins elevated and plateaued at 0.08. Likely demand ischemia in the setting of HFpEF and possible PE. Holding diuretics at this time. #Acute on chronic anemia ? Hemoglobin dropped from 7.4-6.2 on 08/04. Responded well to transfusion. Improved has been stable in the mid 8 range. Resume Eliquis to treat thrombus and hypercoagulable state. - Continue pantoprazole 40 mg daily #Dementia: Continue home donepezil. #Peripheral neuropathy: Continue home gabapentin. #Anxiety: Continue home Xanax 0.5 mg 3 times daily as needed. Total time spent on discharge 32 minutes in counseling, documentation, chart review, and direct care with patient. Exam Data for Last 24 hours Vital signs and Labs for Last 24 Hours: Temp Pulse Resp BP Pulse Ox O2 Del Method O2 Flow Rate 98.5 F 78 18 161/83 H 98 Nasal Cannula 2 08/05/25 08:00 08/05/25 11:05 08/05/25 08:00 08/05/25 08:00 08/05/25 08:00 08/05/25 08:58 08/05/25 08:58 Laboratory Results - last 24 hr 08/04/25 06:20: Hemoglobin A1c 5.0 08/04/25 08:14: Iron 36 L, TIBC 162 L, Iron Saturation 22.18252, Ferritin 431 H, Blood Type O Positive, Antibody Screen Negative, Crossmatch ([facility]G) See Detail 08/04/25 17:21: Stool Occult Blood Negative 08/04/25 19:41: Hgb 9.0 L D, Hct 29.5 L 08/05/25 06:08: WBC 6.9, RBC 2.86 L, Hgb 7.5 L D, Hct 24.7 L, MCV 86.4, MCH 26.2 L, MCHC 30.4 L, RDW 16.0, Plt Count 287, MPV 9.6, Neut % (Auto) 76.3, Lymph % (Auto) 12.8, Ward % (Auto) 8.3, Eos % (Auto) 1.9, Baso % (Auto) 0.3, Neut # (Auto) 5.3, Lymph # (Auto) 0.9, Ward # (Auto) 0.6, Eos # (Auto) 0.1, Baso # (Auto) 0.0, Sodium 134 L, Potassium 4.1, Chloride 105, Carbon Dioxide 21 L, Anion Gap 12.1, BUN 50 H, Creatinine 2.20 H D, Estimated Creat Clear 21, Estimated GFR 21 L, Est GFR ( Amer) 26 L D, Glucose 126 H, Calcium 7.6 L, Total Bilirubin 0.5, AST 22 D, ALT 10 L, Alkaline Phosphatase 96, Total Protein 6.6, Albumin 2.7 L, Globulin 3.9 H, Albumin/Globulin Ratio 0.7 L I & O for Last 24 hours: Intake & Output 08/02/25 08/03/25 08/04/25 08/05/25 23:59 23:59 23:59 23:59 Intake Total 1160 / 1410 0 / 1920 1014.583 / 1214.583 450 / 450 Output Total 550 / 550 1919 / 192 700 / 700 150 / 150 Balance 610 / 860 0 / 0 314.583 / 514.583 300 / 300 Weight 68.124 kg 66.224 kg 68.629 kg 68.629 kg Constitutional Constitutional: no acute distress, average body habitus and chronically ill appearing *Routine HEENT Exam Head: Present normocephalic and atraumatic ENT: Present mucous membranes moist *Routine Neck Exam Neck: Present supple, full ROM and normal carotid upstroke; Absent JVD, carotid bruit or lymphadenopathy Comments: Right IJ bandage clean dry and intact *Routine Respiratory Exam Respiratory: Present CTA bilaterally, normal respiratory effort, able to speak in complete sentences and symmetric chest movement; Absent rhonchi, wheezes or crackles *Routine Cardiovascular Exam Cardiovascular: Present tachycardia; Absent murmur or gallop *Routine Abdominal Exam Abdominal: Present soft and normoactive bowel sounds; Absent tenderness, distended or organomegaly *Routine Rectal Exam Patient deferred: visual exam *Routine Exam Patient deferred: external exam *Routine Extremities Exam Extremities: Present full ROM, pulses intact and normal capillary refill; Absent cyanosis, clubbing or edema *Routine Skin Exam Skin: Present intact and warm; Absent erythema *Routine Neurological Exam Neurological: Present alert and CN II-XII intact; Absent sensory deficit, motor deficit or altered mental status Comments: Oriented to self and place. At baseline mentation Routine Psychiatric Exam Psychiatric: Present normal affect Results Data Completed and Pending Labs on day of discharge: Labs from last 24 hours 08/05/25 08/04/25 08/04/25 06:08 19:41 17:21 WBC 6.9 RBC 2.86 L Hgb 7.5 L D 9.0 L D Hct 24.7 L 29.5 L MCV 86.4 MCH 26.2 L MCHC 30.4 L RDW 16.0 Plt Count 287 MPV 9.6 Neut % (Auto) 76.3 Lymph % (Auto) 12.8 Ward % (Auto) 8.3 Eos % (Auto) 1.9 Baso % (Auto) 0.3 Neut # (Auto) 5.3 Lymph # (Auto) 0.9 Ward # (Auto) 0.6 Eos # (Auto) 0.1 Baso # (Auto) 0.0 Sodium 134 L Potassium 4.1 Chloride 105 Carbon Dioxide 21 L Anion Gap 12.1 BUN 50 H Creatinine 2.20 H D Estimated Creat Clear 21 Estimated GFR 21 L Est GFR ( Amer) 26 L D Glucose 126 H Hemoglobin A1c Calcium 7.6 L Iron TIBC Iron Saturation Ferritin Total Bilirubin 0.5 AST 22 D ALT 10 L Alkaline Phosphatase 96 Total Protein 6.6 Albumin 2.7 L Globulin 3.9 H Albumin/Globulin Ratio 0.7 L Stool Occult Blood Negative Blood Type Antibody Screen Crossmatch (AHG) 08/04/25 08/04/25 08:14 06:20 WBC RBC Hgb Hct MCV MCH MCHC RDW Plt Count MPV Neut % (Auto) Lymph % (Auto) Ward % (Auto) Eos % (Auto) Baso % (Auto) Neut # (Auto) Lymph # (Auto) Ward # (Auto) Eos # (Auto) Baso # (Auto) Sodium Potassium Chloride Carbon Dioxide Anion Gap BUN Creatinine Estimated Creat Clear Estimated GFR Est GFR ( Amer) Glucose Hemoglobin A1c 5.0 Calcium Iron 36 L TIBC 162 L Iron Saturation 22.89420 Ferritin 431 H Total Bilirubin AST ALT Alkaline Phosphatase Total Protein Albumin Globulin Albumin/Globulin Ratio Stool Occult Blood Blood Type O Positive Antibody Screen Negative Crossmatch ([facility]) See Detail DS: Diagnosis Discharge Diagnosis (1) Renal cancer: Status: Acute Code(s): C64.9 - Malignant neoplasm of unspecified kidney, except renal pelvis Qualifiers: Laterality: unspecified laterality Qualified Code(s): C64.9 - Malignant neoplasm of unspecified kidney, except renal pelvis (2) Atrial thrombus: Status: Acute Code(s): I51.3 - Intracardiac thrombosis, not elsewhere classified (3) Dementia: Status: Chronic Code(s): F03.90 - Unspecified dementia, unspecified severity, without behavioral disturbance, psychotic disturbance, mood disturbance, and anxiety (4) Acute HFrEF (heart failure with reduced ejection fraction): Status: Acute Code(s): I50.21 - Acute systolic (congestive) heart failure (5) 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: Status: Acute Code(s): D49.511 - Neoplasm of unspecified behavior of right kidney; I82.220 - Acute embolism and thrombosis of inferior vena cava (6) Right atrial thrombus: Status: Acute Code(s): I51.3 - Intracardiac thrombosis, not elsewhere classified (7) Chronic kidney disease: Status: Acute Code(s): N18.9 - Chronic kidney disease, unspecified Qualifiers: Chronic kidney disease stage: unspecified stage Qualified Code(s): N18.9 - Chronic kidney disease, unspecified (8) Anemia: Status: Acute Code(s): D64.9 - Anemia, unspecified Qualifiers: Anemia type: unspecified type Qualified Code(s): D64.9 - Anemia, unspecified Meds Home Medications and Allergies Home Medications ?Medication ?Instructions ?Recorded ?Confirmed ?Type alprazolam 0.5 mg tablet 0.5 mg PO TIDP PRN Anxiety 08/01/25 08/02/25 History aspirin 81 mg capsule 81 mg PO DAILY 08/01/25 08/01/25 History donepezil 5 mg tablet 5 mg PO DAILY 08/01/25 08/01/25 History ferrous gluconate 324 mg (38 mg 324 mg PO DAILY 08/01/25 08/02/25 History iron) tablet gabapentin 100 mg capsule 100 mg PO HS 08/01/25 08/01/25 History mecobalamin (vitamin B12) 1,000 1,000 mcg PO DAILY 08/01/25 08/01/25 History mcg chewable tablet (B12 Active) apixaban 5 mg tablet (Eliquis) See Rx Instructions .Route 08/06/25 Rx .COMPLEX #72 tabs ipratropium 0.5 mg-albuterol 3 mg 3 ml inhalation Q6HP PRN shortness 08/06/25 Rx (2.5 mg base)/3 mL nebulization of breath or wheezing 30 days #180 soln mL pantoprazole 40 mg tablet,delayed 40 mg PO BID 30 days #60 tabs 08/06/25 Rx release New Prescriptions to Start Prescriptions: apixaban [Eliquis] Trey Gonsalez ipratropium-albuterol Trey Gonsalez pantoprazole Trey Gonsalez Allergies Allergy/AdvReac Type Severity Reaction Status Date / Time No Known Allergies Allergy Verified 08/01/25 23:07 Discharge Plan Disposition Patient Disposition: Hospice - Home Condition: Undetermined Discharge Order Discharge Orders: Discharge Order (Routine); Ordered 08/06/25 Ordered By: Trey Gonsalez Follow up Plan Follow up with: Mariano Gaines [Primary Care Provider, Medical] - Enter time for follow up Prescriptions/Medication Reconciliation: New ipratropium-albuterol 0.5 mg-3 mg(2.5 mg base)/3 mL Solution For Nebulization 3 ml inhalation Q6HP PRN (Reason: shortness of breath or wheezing) 30 Days Qty: 180 0RF pantoprazole 40 mg Tablet,Delayed Release (Dr/Ec) 40 mg PO BID 30 Days Qty: 60 0RF Eliquis 5 mg tablet See Rx Instructions .ROUTE .COMPLEX Qty: 72 0RF Rx Instructions: 10 mg (2 tablets) twice daily for 6-1/2 more days followed by 5 mg twice daily for the remainder of the month. Continued donepezil 5 mg tablet 5 mg PO DAILY Patient Comments: TAKE 1 TABLET BY MOUTH ONCE A DAY. alprazolam 0.5 mg tablet 0.5 mg PO TIDP PRN (Reason: Anxiety) Patient Comments: TAKE (1) TABLET BY MOUTH THREE TIMES DAILY NEEDED. gabapentin 100 mg capsule 100 mg PO HS Patient Comments: TAKE 1 CAPSULE BY MOUTH AT BEDTIME ferrous gluconate 324 mg (38 mg iron) Tablet 324 mg PO DAILY mecobalamin (vitamin B12) [B12 Active] 1,000 mcg Tablet,Chewable 1,000 mcg PO DAILY aspirin 81 mg Capsule 81 mg PO DAILY Problem Reconciliation Problems Reviewed?: Yes Patient Discharge Instructions ACTIVITY: Continue current activity DIET: continue same diet Patient Instructions: DI for Kidney Failure, DI for Deep Vein Thrombosis Print Language: Irish Providers Primary Care Provider: Mariano Gaines Provider: Orlando Villanueva Attending Provider: Orlando Villanueva
[2025-08-06] MEDS: POLYETHYLENE GLYCOL 3350 17 GM PACKET PO (08:52)
[2025-08-06] MEDS: PANTOPRAZOLE 40MG VIAL 40 MG IV (08:52)
[2025-08-06] MEDS: APIXABAN 5MG TABLET 10 MG PO (12:04)
== END 2025-08-06 17:51 | disposition hospice, home (50) | DRG 270 ==
PROVIDERS: Internal Medicine; Internal Medicine Adolescent Medicine; Nurse Practitioner Family; Admitting Provider Student in an Organized Health Care Education/Training Program; PCP Family Medicine; Visit Provider Student in an Organized Health Care Education/Training Program
PROC: 02C63ZZ Extirpation of Matter from Right Atrium, Percutaneous Approach (ICD-10-PCS; CPT 75820; 2025-08-04 12:45)
DX: I51.3 Intracardiac thrombosis, not elsewhere classified (principal); I21.A1 Myocardial infarction type 2; I50.31 Acute diastolic (congestive) heart failure; J96.01 Acute respiratory failure with hypoxia; I82.220 Acute embolism and thrombosis of inferior vena cava; I82.0 Budd-Chiari syndrome; C64.9 Malignant neoplasm of unspecified kidney, except renal pelvis; F03.94 Unspecified dementia, unspecified severity, with anxiety; F03.93 Unspecified dementia, unspecified severity, with mood disturbance; N18.4 Chronic kidney disease, stage 4 (severe); C78.7 Secondary malignant neoplasm of liver and intrahepatic bile duct; I82.3 Embolism and thrombosis of renal vein; D62 Acute posthemorrhagic anemia; G25.81 Restless legs syndrome; Z86.73 Personal history of transient ischemic attack (TIA), and cerebral infarction without residual deficits; D50.9 Iron deficiency anemia, unspecified; D63.1 Anemia in chronic kidney disease; G62.9 Polyneuropathy, unspecified; Z79.01 Long term (current) use of anticoagulants; Z79.82 Long term (current) use of aspirin; Z51.5 Encounter for palliative care
CPT/HCPCS: 34490; 36415; 36430; 80053; 80061; 82272; 82728; 83036; 83540; 83550; 83735; 83880; 84443; 84484; 85014; 85018; 85025; 85044; 86850; 88173; 88305; 88342; 88360; 93005; 93270; 93306; 93308; 93312; 93319; 93970; 94640; 94760; 94761; 97110; 97162; C1757; C1769; C1894; G0328; J1650; J1920; J1938; J2003; J2250; J2470; J2704; J7040; J7120; P9016